=== PATIENT | female | born 1960 | race Caucasian/White ===

== ENCOUNTER 2023-09-08 11:45 | Emergency (ER) | payer MEDICARE, OTHER, SELFPAY ==
[2023-09-08 12:02] VITALS: BP 114/74
--- NOTE | 2023-09-08 14:07 | ED.GENMED ---
History of Present Illness
General
Chief Complaint: DVT/Possible Blood Clot
Source: patient
Exam Limitations: none
Time Seen by Provider: 09/08/23 12:27
Nursing documentation reviewed up to this point in time: agreed with
Travel History
Have you had any contact with someone who has COVID-19?: No
Do you have any symptoms of coronavirus? Fever > 100 degrees, chills, cough, shortness of breath, sore throat, loss of taste or smell, muscle aches, or headache?: No
History of Present Illness
History of Present Illness:
The patient is a pleasant 63-year-old female who reports that she has noticed mild swelling and discomfort behind her left knee. Symptoms have been going on for 2 to 3 days. She denies skin rash, fever, trauma, weakness and numbness. She denies a
history of DVT and PE. She denies shortness of breath and chest pain.
Past History
Past History
ED Past Medical History: Other (psoriasis)
ED Past Surgical History: Other
Social History
Tobacco: Non-smoker
Alcohol: None
Drug: None
Personal: Other
Living: with family
Employment: Other
Family History
Family History: Other
Review of Systems
Review of Systems
Allergies reviewed?: Yes
All Other Systems: ROS reviewed and negative except as documented in HPI and ROS
Constitutional: Reports no symptoms
EENT: Reports no symptoms
Respiratory: Reports no symptoms
Cardiac: Reports no symptoms
ABD/GI: Reports no symptoms
: Reports no symptoms
Musculoskeletal: Reports muscle stiffness
Skin: Reports no symptoms
Neurological: Reports no symptoms
Endocrine: Reports no symptoms
Hematologic/Lymphatic: Reports no symptoms
Psychiatric: Reports no symptoms
Phy Exam
Physical Exam
Physical Exam:
Physical Exam
General: no apparent distress, not acutely ill
Neck: supple. no meningeal signs. normal psoterior pharynx
Heart: s1/s2 regular rate and rhythm,
Lungs: no acute respiratory distress. clear bilaterally
Abdomen: normal bowel sounds. not tender. no CVAT
Neuro: alert and oriented. no focal neurological deficits
Skin: no rash
Psychiatric: well kept. interactive and cooperative
Extremities: no edema. Strong pulses of bilateral feet. Mild left calf tenderness, primarily behind left knee. No skin erythema
Course
Orders/Labs/Results
Orders:
Orders
09/08/23 12:12
US Periph Venous LOWER Ext LT Urgent
Comment:
Reason For Exam: swelling pain
Vital Signs
Initial and Last Documented VS:
Initial Vital Signs
Temp Pulse Resp BP Pulse Ox
98.7 F 84 18 114/74 97
09/08/23 12:02 09/08/23 12:02 09/08/23 12:02 09/08/23 12:02 09/08/23 12:02
Last Documented Vital Signs
Temp Pulse Resp BP Pulse Ox
98.7 F 84 18 114/74 97
09/08/23 12:02 09/08/23 12:02 09/08/23 12:02 09/08/23 12:02 09/08/23 12:02
MDM/Problems Addressed
Differential Diagnosis Includes:
Left leg DVT, Gao's cyst, cellulitis of leg
MDM/Problems Addressed:
Patient presents with acute swelling of left leg
*Radiology
Radiology exam reviewed: radiology read reviewed
*Pulse Oximetry
Patient hypoxic: no
*EKG
Interpreted by ED Provider?: NA
*Stoker Installer Interpretation
Rate: Stoker Installer- N/A
*Critical Care Note
Total Time (30-74mins, 75-104mins- exclusive of procedures): Not Applicable
Data Reviewed
Source: patient
Patient Management
Social determinants of health affecting care: Living situation and Strong social support
Escalation/DeEscalation of care consider admission/obs:
Patient has strong pulses of bilateral feet. There is no sign of cellulitis. Ultrasound shows no sign of DVT.
ED Attending Note
-
Portions of this chart may have been created with voice recognition software.� Occasional wrong word or��sound alike� substitutions may have occurred due to the inherent limitations of voice recognition software.
Discharge Plan
Departure
Patient Disposition: Home (Routine Discharge)
Date of Disposition: 09/08/23
Time of Disposition: 14:31
Patient with high blood pressure during this ER visit?: No
Condition: Good
Covid-19: Not Applicable
Discharge Problem:
Gao's cyst, ruptured
Instructions: Gao's Cyst (DC)
Prescriptions:
No Action
prednisolone sodium phosphate [Pediapred] 5 MG/5 ML solution
6 mg PO WEEKLY
calcium-vitamin D3-vitamin K 1 EACH tablet,chewable
1 ea PO DAILY
Referrals:
Kimmie Salinas MD [Family Provider] -
Interventions
Interventions:
*Risk Screen - Suicide Last Done: 09/08/23 12:02
*General Assessment Last Done: 09/08/23 14:38
*Neglect/Abuse Screening Last Done: 09/08/23 12:02
ED- Fall Risk Assessment Last Done: 09/08/23 14:38
*ED COVID-19 Vaccine History Last Done: 09/08/23 12:02
*Nursing Disposition Last Done: 09/08/23 14:38
ED- Cardiac Assessment Last Done: 09/08/23 12:23
ED- Pulmonary Assessment Last Done: 09/08/23 12:23
ED-Peripheral Vascular Assessment Last Done: 09/08/23 12:23
ED-Skin Assessment Last Done: 09/08/23 12:23
Discharge Date and Time
Discharge Date/Time: 09/08/23 14:43
== END 2023-09-08 14:43 | disposition home or self-care (01) ==
LOC: EMR 11:45
PROVIDERS: EMERGENCY PHYSICIAN Emergency Medicine; FAMILY PHYSICIAN Family Medicine
DX: M66.0 Rupture of popliteal cyst (principal)
CPT/HCPCS: 99284; 93971

== ENCOUNTER → 2023-10-01 13:53 | Outpatient (REF) | payer MEDICARE, OTHER, SELFPAY ==
[2023-10-01 14:36] LABS: % Basophils 0.9 % (0-2); % Eosinophils 1.1 % (0-6); % Lymphocytes 11.7 % (20.5-51.1); % Monocytes 9.4 % (1.7-9.3); % Neutrophils 75.9 % (42.2-75.2); Absolute Basophils 0.1 10^3/uL (0-0.2); Absolute Eosinophils 0.1 10^3/uL (0-0.7); Absolute Immature Granulocytes 0.1 10^3/uL (0-0.05); Absolute Lymphocytes 1.4 10^3/uL (1.2-3.4); Absolute Monocytes 1.2 10^3/uL (0.1-0.6); Absolute Neutrophils 9.3 10^3/uL (1.4-6.5); Hematocrit 36.3 % (37.0-47.0); Hemoglobin 12.3 g/dL (12.0-16.0); Mean Corp Hgb Conc. 33.9 g/dL (33.0-37.0); Mean Corpuscular Hgb 31.4 pg (27.0-31.0); Mean Corpuscular Volume 92.6 fL (81.0-99.0); Mean Platelet Volume 9.2 fL (7.4-10.4); Nucleated Red Blood Cells % 0 %; Platelet Count 479 10^3/uL (130-400); Red Blood Cell Count 3.92 10^6/uL (4.20-5.40); Red Cell Dist. Width 12.7 % (11.5-14.5); White Blood Cell Count 12.3 10^3/uL (4.8-10.8)
[2023-10-01 14:54] LABS: ALT (SGPT) 12 U/L (0-35); AST (SGOT) 17 U/L (14-36); Albumin 3.6 g/dl (3.5-5.0); Alkaline Phosphatase 71 U/L (38-126); Blood Urea Nitrogen 17 mg/dl (7-17); Calcium 9.5 mg/dl (8.4-10.2); Carbon Dioxide 24 mmol/L (22-30); Chloride 101 mmol/L (98-107); Glucose 94 mg/dl (70-99); Potassium 4.6 mmol/L (3.5-5.1); Sodium 136 mmol/L (135-145); Total Bilirubin 0.8 mg/dl (0.2-1.3); Total Protein 6.3 g/dl (6.3-8.2); eGFR > 60.00
[2023-10-01 15:17] LABS: Vitamin D, 25-OH*** 60.8 ng/mL (30-80)
== END ==
LOC: REG 13:53
PROVIDERS: ATTENDING PHYSICIAN Internal Medicine Rheumatology; FAMILY PHYSICIAN Family Medicine
DX: E55.9 Vitamin D deficiency, unspecified (principal); L40.59 Other psoriatic arthropathy; Z51.81 Encounter for therapeutic drug level monitoring; Z79.899 Other long term (current) drug therapy
CPT/HCPCS: 36415; 80053; 82306; 85025; 86140

== ENCOUNTER → 2023-10-11 12:14 | Outpatient (REF) | payer MEDICARE, OTHER, SELFPAY ==
[2023-10-11 14:36] LABS: Calcium 9.7 mg/dl (8.4-10.2)
[2023-10-11 15:10] LABS: TSH 0.81 uIU/ml (0.47-4.68)
[2023-10-12 11:52] LABS: Intact PTH 42.4 pg/ml (13.6-85.8)
[2023-10-16 01:45] LABS: Albumin 3.75 g/dL (3.75-5.01); Alpha 1 Globulin 0.36 g/dL (0.19-0.46); Alpha 2 Globulin 0.78 g/dL (0.48-1.05); SPEP IFE Reflex Not Done; Total Protein-Electrophoresis 6.4 g/dL (6.3-8.2)
== END ==
LOC: REG 12:14
PROVIDERS: ATTENDING PHYSICIAN Internal Medicine Rheumatology; FAMILY PHYSICIAN Family Medicine
DX: L40.59 Other psoriatic arthropathy (principal); M25.561 Pain in right knee; E03.9 Hypothyroidism, unspecified; L40.9 Psoriasis, unspecified; M50.90 Cervical disc disorder, unspecified, unspecified cervical region; M51.37 Other intervertebral disc degeneration, lumbosacral region; M81.0 Age-related osteoporosis without current pathological fracture; Z11.1 Encounter for screening for respiratory tuberculosis; Z79.899 Other long term (current) drug therapy; Z68.26 Body mass index [BMI] 26.0-26.9, adult
CPT/HCPCS: 36415; 83970; 84155; 84165; 84443; 86140

== ENCOUNTER → 2023-12-10 12:10 | Outpatient (REF) | payer MEDICARE, OTHER, SELFPAY | LOC: PAVMRI 12:10 | PROVIDERS: ATTENDING PHYSICIAN Emergency Medicine | DX: R42 Dizziness and giddiness (principal); D84.9 Immunodeficiency, unspecified | CPT/HCPCS: 70553; A9575 ==

== ENCOUNTER → 2023-12-11 09:07 | Outpatient (REF) | payer MEDICARE, OTHER, SELFPAY | LOC: WDC 09:07 | PROVIDERS: ATTENDING PHYSICIAN Emergency Medicine | DX: N63.23 Unspecified lump in the left breast, lower outer quadrant (principal) | CPT/HCPCS: 76642; 77062; 77066 ==

== ENCOUNTER → 2024-01-01 14:13 | Outpatient (REF) | payer MEDICARE, OTHER, SELFPAY ==
[2024-01-01 15:05] LABS: % Basophils 0.7 % (0-2); % Eosinophils 0.3 % (0-6); % Immature Granulocytes 0.6 % (0-0.5); % Lymphocytes 12.3 % (20.5-51.1); % Monocytes 6.9 % (1.7-9.3); % Neutrophils 79.2 % (42.2-75.2); Absolute Basophils 0.1 10^3/uL (0-0.2); Absolute Immature Granulocytes 0.1 10^3/uL (0-0.05); Absolute Lymphocytes 1.1 10^3/uL (1.2-3.4); Absolute Monocytes 0.6 10^3/uL (0.1-0.6); Absolute Neutrophils 7.1 10^3/uL (1.4-6.5); Hematocrit 37.4 % (37.0-47.0); Hemoglobin 12.3 g/dL (12.0-16.0); Mean Corp Hgb Conc. 32.9 g/dL (33.0-37.0); Mean Corpuscular Volume 97.4 fL (81.0-99.0); Mean Platelet Volume 10.4 fL (7.4-10.4); Nucleated Red Blood Cells % 0 %; Platelet Count 228 10^3/uL (130-400); Red Blood Cell Count 3.84 10^6/uL (4.20-5.40); Red Cell Dist. Width 14.5 % (11.5-14.5); White Blood Cell Count 8.9 10^3/uL (4.8-10.8)
[2024-01-01 15:59] LABS: ALT (SGPT) 16 U/L (0-35); AST (SGOT) 23 U/L (14-36); Albumin 4.2 g/dl (3.5-5.0); Alkaline Phosphatase 45 U/L (38-126); Blood Urea Nitrogen 13 mg/dl (7-17); Calcium 9.5 mg/dl (8.4-10.2); Carbon Dioxide 23 mmol/L (22-30); Chloride 105 mmol/L (98-107); Glucose 73 mg/dl (70-99); Potassium 4.4 mmol/L (3.5-5.1); Sodium 135 mmol/L (135-145); Total Bilirubin 0.4 mg/dl (0.2-1.3); Total Protein 6.4 g/dl (6.3-8.2); eGFR > 60.00
== END ==
LOC: REG 14:13
PROVIDERS: ATTENDING PHYSICIAN Internal Medicine Rheumatology; FAMILY PHYSICIAN Family Medicine
DX: L40.59 Other psoriatic arthropathy (principal); L40.9 Psoriasis, unspecified; M25.462 Effusion, left knee; M25.561 Pain in right knee; M25.562 Pain in left knee; M50.90 Cervical disc disorder, unspecified, unspecified cervical region; M51.37 Other intervertebral disc degeneration, lumbosacral region; M81.0 Age-related osteoporosis without current pathological fracture; R79.82 Elevated C-reactive protein (CRP); Z68.26 Body mass index [BMI] 26.0-26.9, adult; Z79.899 Other long term (current) drug therapy
CPT/HCPCS: 36415; 80053; 85025; 86140

== ENCOUNTER → 2024-03-21 11:43 | Outpatient (REF) | payer MEDICARE, OTHER, SELFPAY ==
[2024-03-21 12:32] LABS: Urine Albumin Negative (Neg - Trace); Urine Bilirubin 1+ (Negative); Urine Character Clear (Clear); Urine Color Yellow; Urine Glucose Negative (Negative); Urine Ketone Negative (Negative); Urine Leukocyte Trace (Negative); Urine Nitrite Negative (Negative); Urine Occult Blood Negative (Negative); Urine Urobilinogen 1+ (Neg - 1+)
[2024-03-21 12:41] LABS: % Basophils 1.3 % (0-2); % Eosinophils 2.3 % (0-6); % Immature Granulocytes 0.8 % (0-0.5); % Lymphocytes 25.9 % (20.5-51.1); % Monocytes 9.1 % (1.7-9.3); % Neutrophils 60.6 % (42.2-75.2); Absolute Basophils 0.1 10^3/uL (0-0.2); Absolute Eosinophils 0.2 10^3/uL (0-0.7); Absolute Immature Granulocytes 0.1 10^3/uL (0-0.05); Absolute Monocytes 0.7 10^3/uL (0.1-0.6); Absolute Neutrophils 4.8 10^3/uL (1.4-6.5); Hematocrit 38.3 % (37.0-47.0); Hemoglobin 13.2 g/dL (12.0-16.0); Mean Corp Hgb Conc. 34.5 g/dL (33.0-37.0); Mean Corpuscular Hgb 33.2 pg (27.0-31.0); Mean Corpuscular Volume 96.5 fL (81.0-99.0); Mean Platelet Volume 10.4 fL (7.4-10.4); Nucleated Red Blood Cells % 0 %; Platelet Count 302 10^3/uL (130-400); Red Blood Cell Count 3.97 10^6/uL (4.20-5.40); Red Cell Dist. Width 13.5 % (11.5-14.5); White Blood Cell Count 7.9 10^3/uL (4.8-10.8)
[2024-03-21 13:06] LABS: ALT (SGPT) 18 U/L (0-35); AST (SGOT) 22 U/L (14-36); Albumin 4.3 g/dl (3.5-5.0); Alkaline Phosphatase 43 U/L (38-126); Blood Urea Nitrogen 19 mg/dl (7-17); Calcium 9.5 mg/dl (8.4-10.2); Carbon Dioxide 25 mmol/L (22-30); Chloride 107 mmol/L (98-107); Glucose 91 mg/dl (70-99); HDL Cholesterol 101 mg/dl; LDL Cholesterol, Calculated 88 mg/dl; Potassium 4.5 mmol/L (3.5-5.1); Sodium 139 mmol/L (135-145); Total Bilirubin 0.4 mg/dl (0.2-1.3); Total Cholesterol 212 mg/dl (50-199); Total Protein 6.5 g/dl (6.3-8.2); Triglyceride 116 mg/dl (10-149); Very Low Density Lipoprotein 23 mg/dl (0-30); eGFR > 60.00
[2024-03-21 13:06] LABS: C-Reactive Protein < 5.00 mg/L (0.0-10.00)
[2024-03-21 13:14] LABS: Urine Red Blood Cell 0-2 /HPF (0-2); Urine Squamous Cell 26-30 /LPF (Few)
[2024-03-21 13:23] LABS: Vitamin D, 25-OH*** 61.4 ng/mL (30-80)
[2024-03-21 13:36] LABS: TSH Reflex To Free T4 1.85 uIU/ml (0.47-4.68)
== END ==
LOC: REG 11:43
PROVIDERS: ATTENDING PHYSICIAN Internal Medicine Rheumatology; FAMILY PHYSICIAN Emergency Medicine
DX: L40.59 Other psoriatic arthropathy (principal); L40.9 Psoriasis, unspecified; M25.462 Effusion, left knee; M25.561 Pain in right knee; M25.562 Pain in left knee; M50.90 Cervical disc disorder, unspecified, unspecified cervical region; M51.37 Other intervertebral disc degeneration, lumbosacral region; M81.0 Age-related osteoporosis without current pathological fracture; R79.82 Elevated C-reactive protein (CRP); Z79.899 Other long term (current) drug therapy; Z00.00 Encounter for general adult medical examination without abnormal findings; L40.50 Arthropathic psoriasis, unspecified; F51.01 Primary insomnia; E55.9 Vitamin D deficiency, unspecified; F17.200 Nicotine dependence, unspecified, uncomplicated; E66.3 Overweight; M85.80 Other specified disorders of bone density and structure, unspecified site; E78.5 Hyperlipidemia, unspecified
CPT/HCPCS: 36415; 80053; 80061; 81003; 81015; 82306; 84443; 85025; 86140

== ENCOUNTER → 2024-03-26 14:10 | Outpatient (REF) | payer MEDICARE, OTHER, SELFPAY | LOC: RAD 14:10 | PROVIDERS: ATTENDING PHYSICIAN Emergency Medicine | DX: R42 Dizziness and giddiness (principal); R55 Syncope and collapse | CPT/HCPCS: 93880 ==

== ENCOUNTER → 2024-07-23 12:36 | Outpatient (REF) | payer MEDICARE, OTHER, SELFPAY ==
[2024-07-23 13:09] LABS: % Basophils 1.4 % (0-2); % Eosinophils 1.4 % (0-6); % Immature Granulocytes 0.5 % (0-0.5); % Lymphocytes 20.8 % (20.5-51.1); % Monocytes 9.7 % (1.7-9.3); % Neutrophils 66.2 % (42.2-75.2); Absolute Basophils 0.1 10^3/uL (0-0.2); Absolute Eosinophils 0.1 10^3/uL (0-0.7); Absolute Lymphocytes 1.4 10^3/uL (1.2-3.4); Absolute Monocytes 0.6 10^3/uL (0.1-0.6); Absolute Neutrophils 4.4 10^3/uL (1.4-6.5); Hematocrit 37.5 % (37.0-47.0); Hemoglobin 12.9 g/dL (12.0-16.0); Mean Corp Hgb Conc. 34.4 g/dL (33.0-37.0); Mean Corpuscular Hgb 32.7 pg (27.0-31.0); Mean Corpuscular Volume 95.2 fL (81.0-99.0); Mean Platelet Volume 10.1 fL (7.4-10.4); Nucleated Red Blood Cells % 0 %; Platelet Count 248 10^3/uL (130-400); Red Blood Cell Count 3.94 10^6/uL (4.20-5.40); Red Cell Dist. Width 12.5 % (11.5-14.5); White Blood Cell Count 6.6 10^3/uL (4.8-10.8)
[2024-07-23 13:40] LABS: ALT (SGPT) 22 U/L (0-35); AST (SGOT) 25 U/L (14-36); Albumin 4.1 g/dl (3.5-5.0); Alkaline Phosphatase 38 U/L (38-126); Blood Urea Nitrogen 14 mg/dl (7-17); Calcium 9.6 mg/dl (8.4-10.2); Carbon Dioxide 26 mmol/L (22-30); Chloride 106 mmol/L (98-107); Glucose 96 mg/dl (70-99); Potassium 4.5 mmol/L (3.5-5.1); Sodium 137 mmol/L (135-145); Total Bilirubin 0.3 mg/dl (0.2-1.3); Total Protein 6.2 g/dl (6.3-8.2); eGFR > 60.00
[2024-07-23 13:43] LABS: C-Reactive Protein < 5.00 mg/L (0.0-10.00)
== END ==
LOC: REG 12:36
PROVIDERS: ATTENDING PHYSICIAN Internal Medicine Rheumatology; FAMILY PHYSICIAN Emergency Medicine
DX: L40.59 Other psoriatic arthropathy (principal); L40.9 Psoriasis, unspecified; L97.919 Non-pressure chronic ulcer of unspecified part of right lower leg with unspecified severity; M25.462 Effusion, left knee; M25.561 Pain in right knee; M25.562 Pain in left knee; M81.0 Age-related osteoporosis without current pathological fracture
CPT/HCPCS: 36415; 80053; 85025; 86140

== ENCOUNTER 2024-08-11 11:01 | Outpatient (RCR) | payer MEDICARE, OTHER, SELFPAY | END 2024-08-11 23:59 | disposition home or self-care (01) | LOC: RPT 11:01 | PROVIDERS: ATTENDING PHYSICIAN Psychiatry & Neurology Neurology; FAMILY PHYSICIAN Emergency Medicine | DX: R42 Dizziness and giddiness (principal); Z73.6 Limitation of activities due to disability; R26.89 Other abnormalities of gait and mobility | CPT/HCPCS: 97110; 97112; 97116; 97163; 97530 ==

== ENCOUNTER 2024-08-25 14:07 | Outpatient (RCR) | payer MEDICARE, OTHER, SELFPAY | END 2024-08-26 07:35 | disposition home or self-care (01) | LOC: RPT 14:07 | PROVIDERS: ATTENDING PHYSICIAN Psychiatry & Neurology Neurology; FAMILY PHYSICIAN Emergency Medicine | DX: R42 Dizziness and giddiness (principal); Z73.6 Limitation of activities due to disability; R26.89 Other abnormalities of gait and mobility | CPT/HCPCS: 97110; 97112 ==

== ENCOUNTER → 2024-08-27 11:46 | Outpatient (REF) | payer MEDICARE, OTHER, SELFPAY ==
[2024-08-27 12:33] LABS: % Basophils 0.9 % (0-2); % Eosinophils 1.9 % (0-6); % Immature Granulocytes 0.5 % (0-0.5); % Lymphocytes 20.8 % (20.5-51.1); % Monocytes 9.6 % (1.7-9.3); % Neutrophils 66.3 % (42.2-75.2); Absolute Basophils 0.1 10^3/uL (0-0.2); Absolute Eosinophils 0.1 10^3/uL (0-0.7); Absolute Lymphocytes 1.6 10^3/uL (1.2-3.4); Absolute Monocytes 0.7 10^3/uL (0.1-0.6); Hemoglobin 12.9 g/dL (12.0-16.0); Mean Corp Hgb Conc. 33.9 g/dL (33.0-37.0); Mean Corpuscular Hgb 32.1 pg (27.0-31.0); Mean Corpuscular Volume 94.5 fL (81.0-99.0); Mean Platelet Volume 10.6 fL (7.4-10.4); Nucleated Red Blood Cells % 0 %; Platelet Count 273 10^3/uL (130-400); Red Blood Cell Count 4.02 10^6/uL (4.20-5.40); Red Cell Dist. Width 12.3 % (11.5-14.5); White Blood Cell Count 7.5 10^3/uL (4.8-10.8)
[2024-08-27 13:04] LABS: ALT (SGPT) 19 U/L (0-35); AST (SGOT) 24 U/L (14-36); Albumin 4.1 g/dl (3.5-5.0); Alkaline Phosphatase 57 U/L (38-126); Total Bilirubin 0.5 mg/dl (0.2-1.3); Total Protein 6.4 g/dl (6.3-8.2)
[2024-08-29 09:17] LABS: Quantiferon Mitogen minus NIL 9.94 IU/mL; Quantiferon NIL 0.06 IU/mL; Quantiferon Plus TB1 minus NIL 0.01 IU/mL (<=0.34); Quantiferon TB Gold Plus Negative (Negative)
== END ==
LOC: REG 11:46
PROVIDERS: ATTENDING PHYSICIAN Internal Medicine Rheumatology; FAMILY PHYSICIAN Family Medicine; REFERRING PHYSICIAN Psychiatry & Neurology Neurology
DX: L40.59 Other psoriatic arthropathy (principal); M50.90 Cervical disc disorder, unspecified, unspecified cervical region; M81.0 Age-related osteoporosis without current pathological fracture; Z11.1 Encounter for screening for respiratory tuberculosis; V00-Y99 External causes of morbidity; Z79.899 Other long term (current) drug therapy; M25.512 Pain in left shoulder; M54.59 Other low back pain
CPT/HCPCS: 36415; 72114; 73030; 80076; 85025; 86480

== ENCOUNTER → 2024-11-10 10:39 | Outpatient (REF) | payer MEDICARE, OTHER, SELFPAY ==
[2024-11-10 11:33] LABS: % Basophils 1.2 % (0-2); % Immature Granulocytes 0.4 % (0-0.5); % Lymphocytes 22.9 % (20.5-51.1); % Monocytes 12.2 % (1.7-9.3); % Neutrophils 60.3 % (42.2-75.2); Absolute Basophils 0.1 10^3/uL (0-0.2); Absolute Eosinophils 0.2 10^3/uL (0-0.7); Absolute Lymphocytes 1.1 10^3/uL (1.2-3.4); Absolute Monocytes 0.6 10^3/uL (0.1-0.6); Hematocrit 34.7 % (37.0-47.0); Hemoglobin 11.9 g/dL (12.0-16.0); Mean Corp Hgb Conc. 34.3 g/dL (33.0-37.0); Mean Corpuscular Hgb 32.8 pg (27.0-31.0); Mean Corpuscular Volume 95.6 fL (81.0-99.0); Mean Platelet Volume 10.4 fL (7.4-10.4); Nucleated Red Blood Cells % 0 %; Platelet Count 248 10^3/uL (130-400); Red Blood Cell Count 3.63 10^6/uL (4.20-5.40); Red Cell Dist. Width 13.4 % (11.5-14.5); White Blood Cell Count 4.9 10^3/uL (4.8-10.8)
[2024-11-10 12:04] LABS: ALT (SGPT) 26 U/L (0-35); AST (SGOT) 26 U/L (14-36); Albumin 4.1 g/dl (3.5-5.0); Alkaline Phosphatase 51 U/L (38-126); Blood Urea Nitrogen 12 mg/dl (7-17); Calcium 9.6 mg/dl (8.4-10.2); Carbon Dioxide 27 mmol/L (22-30); Chloride 107 mmol/L (98-107); Glucose 97 mg/dl (70-99); Potassium 4.5 mmol/L (3.5-5.1); Sodium 139 mmol/L (135-145); Total Bilirubin 0.7 mg/dl (0.2-1.3); Total Protein 6.2 g/dl (6.3-8.2); eGFR > 60.00
== END ==
LOC: REG 10:39
PROVIDERS: ATTENDING PHYSICIAN Internal Medicine Rheumatology; FAMILY PHYSICIAN Family Medicine
DX: L40.59 Other psoriatic arthropathy (principal); L97.919 Non-pressure chronic ulcer of unspecified part of right lower leg with unspecified severity; M25.561 Pain in right knee; M25.562 Pain in left knee; Z79.899 Other long term (current) drug therapy
CPT/HCPCS: 36415; 80053; 85025; 86140

== ENCOUNTER → 2024-12-21 17:42 | Outpatient (REF) | payer MEDICARE, OTHER, SELFPAY | LOC: WDC 17:42 | PROVIDERS: ATTENDING PHYSICIAN Emergency Medicine | DX: Z12.31 Encounter for screening mammogram for malignant neoplasm of breast (principal) | CPT/HCPCS: 77063; 77067 ==

== ENCOUNTER → 2025-02-09 12:16 | Outpatient (REF) | payer MEDICARE, OTHER, SELFPAY ==
[2025-02-09 13:00] LABS: Hematocrit 36.1 % (37.0-47.0); Hemoglobin 12.2 g/dL (12.0-16.0); Mean Corp Hgb Conc. 33.8 g/dL (33.0-37.0); Mean Corpuscular Volume 97.3 fL (81.0-99.0); Nucleated Red Blood Cells % 0 %; Platelet Count 235 10^3/uL (130-400); Red Cell Dist. Width 12.5 % (11.5-14.5)
[2025-02-09 13:33] LABS: ALT (SGPT) 19 U/L (0-35); AST (SGOT) 24 U/L (14-36); Albumin 4.2 g/dl (3.5-5.0); Alkaline Phosphatase 53 U/L (38-126); Blood Urea Nitrogen 15 mg/dl (7-17); Calcium 9.4 mg/dl (8.4-10.2); Carbon Dioxide 22 mmol/L (22-30); Chloride 107 mmol/L (98-107); Glucose 93 mg/dl (70-99); Potassium 4.6 mmol/L (3.5-5.1); Sodium 134 mmol/L (135-145); Total Protein 6.3 g/dl (6.3-8.2); eGFR > 60.00
[2025-02-09 13:34] LABS: C-Reactive Protein < 5.00 mg/L (0.0-10.00)
== END ==
LOC: REG 12:16
PROVIDERS: ATTENDING PHYSICIAN Internal Medicine Rheumatology; FAMILY PHYSICIAN Emergency Medicine
DX: L40.59 Other psoriatic arthropathy (principal); L40.9 Psoriasis, unspecified; M25.561 Pain in right knee; M50.90 Cervical disc disorder, unspecified, unspecified cervical region; M81.0 Age-related osteoporosis without current pathological fracture; Z79.899 Other long term (current) drug therapy
CPT/HCPCS: 36415; 80053; 85025; 86140

== ENCOUNTER 2025-03-23 19:02 | Emergency (ER) | payer MEDICARE, OTHER, SELFPAY ==
[2025-03-23 19:05] VITALS: BP 148/64
[2025-03-23 19:11] VITALS: BMI 26.3
[2025-03-23 19:49] LABS: Hematocrit 36.0 % (37.0-47.0); Hemoglobin 12.0 g/dL (12.0-16.0); Mean Corp Hgb Conc. 33.3 g/dL (33.0-37.0); Mean Corpuscular Volume 94.2 fL (81.0-99.0); Platelet Count 209 10^3/uL (130-400); Red Cell Dist. Width 12.3 % (11.5-14.5)
[2025-03-23 19:56] LABS: ALT (SGPT) 21 U/L (0-35); AST (SGOT) 28 U/L (14-36); Albumin 4.0 g/dl (3.5-5.0); Alkaline Phosphatase 45 U/L (38-126); Blood Urea Nitrogen 15 mg/dl (7-17); Calcium 9.9 mg/dl (8.4-10.2); Carbon Dioxide 25 mmol/L (22-30); Chloride 105 mmol/L (98-107); Estimated Creatinine Clearance 83 ml/min; Glucose 86 mg/dl (70-99); Potassium 4.0 mmol/L (3.5-5.1); Sodium 135 mmol/L (135-145); Total Protein 6.2 g/dl (6.3-8.2); eGFR > 60.00
[2025-03-23 20:00] VITALS: BP 131/71
--- NOTE | 2025-03-23 20:00 | ED.GENMED ---
History of Present Illness
General
Chief Complaint: Fainting/Passed Out
Time Seen by Provider: 03/23/25 19:39
History of Present Illness
History of Present Illness:
Patient is a 64-year-old female with a history of psoriatic arthritis, CVA who presents to the emergency department after syncopal event. Notes that she was outside in the park in the heat while helping train a service animal. She does not
remember exactly what happened but woke up on the ground feeling slightly tired. There is no tongue or lip bite. No incontinence. No history of seizures. There is no witnessed seizure-like activity. Denies any chest pain or shortness of breath.
States she had 1 wine cooler earlier in the day.
Past History
Past History
ED Past Medical History: Other (psoriasis)
ED Past Surgical History: Other
Social History
Tobacco: Non-smoker
Alcohol: None
Drug: None
Personal: Other
Living: with family
Employment: Other
Family History
Family History: Other
Phy Exam
Physical Exam
Physical Exam:
GENERAL APPEARANCE: NAD, well developed/ well nourished
EYES lids/conjunctiva normal
EARS/NOSE/THROAT Mucous membranes moist, uvula midline without oral pharyngeal erythema, exudate or swelling
HEAD/NECK normocephalic atraumatic, neck is supple.
RESPIRATORY respiratory effort normal, speaks in full sentences, no accessory muscle use. Lungs clear to auscultation without rhonchi, wheezes, rales
CARDIAC Regular rate and rhythm, no edema.
ABDOMINAL Soft, ND/NT. No pulsatile masses on exam, rebound tenderness, Pelaez sign or pain over Mcburney's point.
MUSCLES/EXTREMITIES No abnormal range of motion, no swelling.
SKIN Warm, pink and dry. No rashes
NEUROLOGICAL Speech is clear and appropriate. Normal level of consciousness. Cranial nerves II through XII intact. Sensation intact throughout. No dysmetria or ataxia. 5/5 strength in all extremities.
PSYCH Normal mood and affect. Judgement/competence is appropriate
Course
Orders/Labs/Results
Orders:
Orders
03/23/25 19:10
Electrocardiogram (*1) Urgent
Reason for Study: Syncope
03/23/25 19:11
EKG- Treatment ONCE
03/23/25 19:25
Alcohol Urgent
CMP [Comprehensive Metabolic Panel] Urgent
Complete Blood Count/With Diff Urgent
03/23/25 19:59
Add On- LAB Urgent
Tests Added?: ethanol level, troponin
0.9% Sodium Chloride 1000 ml [Nss] 1,000 ml IV BOLUS
03/23/25 20:37
CT Head W/o Iv Contrast Urgent
Comment:
Reason For Exam: fall, possible seizure? hx of CVA
03/23/25 20:52
Troponin I Urgent
Abnormal Lab Results
03/23/25
19:25
RBC 3.82 L 10^6/uL
(4.20-5.40)
Hct 36.0 L %
(37.0-47.0)
MCH 31.4 H pg
(27.0-31.0)
Total Protein 6.2 L g/dl
(6.3-8.2)
03/23/25 19:25
03/23/25 19:25
Vital Signs
Initial and Last Documented VS:
Initial Vital Signs
Temp Pulse Resp BP Pulse Ox
98.7 F 75 13 148/64 98
03/23/25 19:05 03/23/25 19:05 03/23/25 19:05 03/23/25 19:05 03/23/25 19:05
Last Documented Vital Signs
Temp Pulse Resp BP Pulse Ox
98.7 F 68 26 164/63 99
03/23/25 19:05 03/23/25 21:00 03/23/25 21:00 03/23/25 21:00 03/23/25 21:00
*Pulse Oximetry
SaO2: 98
Oxygen Mode of Delivery: Room air
Patient hypoxic: no
*Critical Care Note
Total Time (30-74mins, 75-104mins- exclusive of procedures): Not Applicable
ED Attending Note
ED Attending Note
ED Attending Note:
Patient with syncopal episode. She is asymptomatic on arrival. She has no neurologic deficits. EKG is normal sinus rhythm without any ischemic changes. Labs and head CT are reassuring. Unclear etiology of patient's symptoms possibly from being
out in the heat. Does not appear to have any medical necessity for admission at this time. Instructed her to follow-up with her primary care doctor for outpatient management and workup.
-
Portions of this chart may have been created with voice recognition software.� Occasional wrong word or��sound alike� substitutions may have occurred due to the inherent limitations of voice recognition software.
Discharge Plan
Departure
Patient Disposition: Home (Routine Discharge)
Date of Disposition: 03/23/25
Time of Disposition: 21:40
Patient with high blood pressure during this ER visit?: Yes
Discharge Problem:
Syncope
Instructions: Syncope (Fainting) (DC)
Prescriptions:
No Action
prednisolone sodium phosphate [Pediapred] 5 MG/5 ML solution
6 mg PO WEEKLY
calcium-vitamin D3-vitamin K 1 EACH tablet,chewable
1 ea PO DAILY
Referrals:
Zuly Goldman MD [Family Provider, Internal Medicine]
Activity Restrictions/Additional Instructions:
Please follow-up with your primary doctor for recheck in the next few days. Return to the emergency department with new or worsening symptoms.
Interventions
Interventions:
*Risk Screen - Suicide Last Done: 03/23/25 19:12
*General Assessment Last Done: 03/23/25 19:12
*Neglect/Abuse Screening Last Done: 03/23/25 19:12
*ED- Fall Risk Assessment Last Done: 03/23/25 19:12
*ED COVID-19 Vaccine History Last Done: 03/23/25 19:12
*Nursing Disposition Last Done: 03/23/25 21:57
ED- Cardiac Assessment Last Done: 03/23/25 19:12
ED- Neurological Assessment Last Done: 03/23/25 19:12
Discharge Date and Time
Discharge Date/Time: 03/23/25 22:01
Print Language: SPANISH
[2025-03-23] MEDS: NSS 1000 IV (20:03)
[2025-03-23 20:30] LABS: Nucleated Red Blood Cells % 0 %
[2025-03-23 21:00] VITALS: BP 164/63
[2025-03-23 21:29] LABS: Troponin I < 0.012 ng/ml
== END 2025-03-23 22:01 | disposition home or self-care (01) ==
LOC: EMR 19:02
PROVIDERS: Nurse Practitioner; EMERGENCY PHYSICIAN Emergency Medicine; FAMILY PHYSICIAN Emergency Medicine
DX: R55 Syncope and collapse (principal); Z86.73 Personal history of transient ischemic attack (TIA), and cerebral infarction without residual deficits
CPT/HCPCS: 99284; 96360; 70450; 80053; 82077; 84484; 85025; 93005

== ENCOUNTER → 2025-03-31 07:15 | Outpatient (REF) | payer MEDICARE, OTHER, SELFPAY | LOC: HWRCS 07:15 | PROVIDERS: ATTENDING PHYSICIAN Family Medicine | DX: Z87.898 Personal history of other specified conditions (principal) | CPT/HCPCS: 93306 ==

== ENCOUNTER → 2025-04-02 16:15 | Outpatient (REF) | payer MEDICARE, OTHER, SELFPAY | LOC: RAD 16:15 | PROVIDERS: ATTENDING PHYSICIAN Nurse Practitioner Family; FAMILY PHYSICIAN Family Medicine | DX: R07.81 Pleurodynia (principal) | CPT/HCPCS: 71100 ==

== ENCOUNTER → 2025-04-03 08:40 | Outpatient (REF) | payer MEDICARE, OTHER, SELFPAY ==
[2025-04-03 10:35] LABS: Glycohemoglobin (HgbA1c) 5.2 % (4.0-5.6)
[2025-04-03 10:49] LABS: Iron 159 ug/dl (37-170); Very Low Density Lipoprotein 13 mg/dl (0-30)
[2025-04-03 10:58] LABS: Total Iron Binding Capacity 266 ug/dl (265-497)
[2025-04-03 11:02] LABS: Vitamin D, 25-OH*** 54.6 ng/mL (30-80)
[2025-04-03 11:09] LABS: HDL Cholesterol 104 mg/dl; LDL Cholesterol, Calculated 27 mg/dl
[2025-04-03 11:20] LABS: Ferritin 61.0 ng/ml (11.1-264.0)
[2025-04-03 11:52] LABS: Folate > 20.0 ng/ml (2.76-20); Vitamin B12 445 pg/ml (239-931)
== END ==
LOC: RCS 08:40
PROVIDERS: ATTENDING PHYSICIAN Family Medicine
DX: Z87.898 Personal history of other specified conditions (principal); Z86.73 Personal history of transient ischemic attack (TIA), and cerebral infarction without residual deficits; D64.9 Anemia, unspecified; E78.00 Pure hypercholesterolemia, unspecified; L40.50 Arthropathic psoriasis, unspecified; G89.4 Chronic pain syndrome; E55.9 Vitamin D deficiency, unspecified
CPT/HCPCS: 36415; 80061; 82306; 82607; 82728; 82746; 83036; 83540; 83550; 84443; 93225; 93226

== ENCOUNTER 2025-04-13 17:25 | Emergency (ER) | payer MEDICARE, OTHER, SELFPAY ==
[2025-04-13 17:34] VITALS: BP 115/74
--- NOTE | 2025-04-13 19:04 | ED.GENMED ---
History of Present Illness
General
Chief Complaint: Skin Surface Trauma
Source: patient
Time Seen by Provider: 04/13/25 18:31
History of Present Illness
History of Present Illness:
64-year-old female presents to the emergency room complaining of a laceration to her left mukherjee. Patient struck her mukherjee on her car door. Patient cannot stop the bleeding. No other complaints. Last tetanus shot was a couple years ago.
Past History
Past History
ED Past Medical History: Other (psoriasis)
ED Past Surgical History: Other
Social History
Tobacco: Non-smoker
Alcohol: None
Drug: None
Personal: Other
Living: with family
Employment: Other
Family History
Family History: Other
Phy Exam
Physical Exam
Physical Exam:
General: Awake, Alert, Oriented X3. No acute distress.
Vitals: unremarkable
Head: Atraumatic
Eyes: Pupils equal, EOMI
Throat: Airway intact, no exudates
Neck: Trachea midline
Neuro: Nonfocal
Skin: Warm, dry, no rash
Extremities: pulses equal b/l, no edema. Flap laceration noted left anterior mukherjee. Follow-up laceration is about 2 cm horizontally and 2 cm on the lower diagonal axis. Total laceration length is approximately 4 cm. There is a actively bleeding
varicose vein at the medial edge of the laceration bed.
Course
Vital Signs
Initial and Last Documented VS:
Initial Vital Signs
Temp Pulse Resp BP Pulse Ox
98.7 F 83 16 115/74 98
04/13/25 17:34 04/13/25 17:34 04/13/25 17:34 04/13/25 17:34 04/13/25 17:34
Last Documented Vital Signs
Temp Pulse Resp BP Pulse Ox
98.7 F 83 16 115/74 98
04/13/25 17:34 04/13/25 17:34 04/13/25 17:34 04/13/25 17:34 04/13/25 19:09
Procedures
Laceration Closure
Left Leg:
Status of Wound: clean
Size of Wound in cm: 4
Description of Wound Edges: ragged and flap-well vascularized
Preparation: cleaned with saline
Anesthesia: 1% Lidocaine with epi
Revision/Debridement: minor revision
Wound exploration: explored to base- no FB
Type of Closure: single layer closure
Skin Closure Material: 4-0 nylon and 5-0 vicryl
Number of sutures: 8
Additional information:
7 send. Interrupted nylon sutures and 1 [id number] Vicryl Rapide suture
MDM/Problems Addressed
Differential Diagnosis Includes:
Laceration, retained foreign body
MDM/Problems Addressed:
Laceration is a flap-like laceration but the flap itself is fairly thick and it is a large area that is exposed. First I controlled the varicose vein which was bleeding with a [id number] stitch using 5-0 Vicryl Rapide. Next I approximated the
flap using 4-0 nylon. The coverage of the wound bed was actually quite good. I explained to the patient that the skin flap may or may not take. She may end up with a large scabbed wound which will take some time to heal but we have done
everything we could to maximize the chance for normal healing. Will give her the contact information for the wound care center to follow-up with.
*Pulse Oximetry
SaO2: 98
Oxygen Mode of Delivery: Room air
Patient hypoxic: no
*Critical Care Note
Total Time (30-74mins, 75-104mins- exclusive of procedures): Not Applicable
ED Attending Note
-
Portions of this chart may have been created with voice recognition software.� Occasional wrong word or��sound alike� substitutions may have occurred due to the inherent limitations of voice recognition software.
Discharge Plan
Departure
Patient Disposition: Home (Routine Discharge)
Date of Disposition: 04/13/25
Time of Disposition: 20:00
Patient with high blood pressure during this ER visit?: No
Condition: Good
Discharge Problem:
Laceration of left leg
Instructions: Laceration Repair With Stitches (DC)
Prescriptions:
No Action
prednisolone sodium phosphate [Pediapred] 5 MG/5 ML solution
6 mg PO WEEKLY
calcium-vitamin D3-vitamin K 1 EACH tablet,chewable
1 ea PO DAILY
Referrals:
[facility] [Outside]
Activity Restrictions/Additional Instructions:
stitches can be removed in 7 to 10 days
Interventions
Interventions:
*Risk Screen - Suicide Last Done: 04/13/25 17:34
*General Assessment Last Done: 04/13/25 20:04
*Neglect/Abuse Screening Last Done: 04/13/25 17:34
*ED- Fall Risk Assessment Last Done: 04/13/25 20:04
*ED COVID-19 Vaccine History Last Done: 04/13/25 20:04
*Nursing Disposition Last Done: 04/13/25 20:04
ED-Skin Assessment Last Done: 04/13/25 20:04
Discharge Date and Time
Discharge Date/Time: 04/13/25 20:11
Print Language: SLOVAK
== END 2025-04-13 20:11 | disposition home or self-care (01) ==
LOC: EMR 17:25
PROVIDERS: EMERGENCY PHYSICIAN Emergency Medicine; FAMILY PHYSICIAN Family Medicine
DX: S81.812A Laceration without foreign body, left lower leg, initial encounter (principal); I83.892 Varicose veins of left lower extremity with other complications; W22.8XXA Striking against or struck by other objects, initial encounter
CPT/HCPCS: 12002; 99282

== ENCOUNTER → 2025-04-15 09:41 | Outpatient (REF) | payer MEDICARE, OTHER, SELFPAY ==
[2025-04-17 17:17] LABS: FIT-Fecal Occult Blood Interp Negative
== END ==
LOC: REG 09:41
PROVIDERS: ATTENDING PHYSICIAN Family Medicine
DX: D64.9 Anemia, unspecified (principal)
CPT/HCPCS: 83520

== ENCOUNTER → 2025-04-23 12:50 | Outpatient (REF) | payer MEDICARE, OTHER, SELFPAY | LOC: RAD 12:50 | PROVIDERS: ATTENDING PHYSICIAN Nurse Practitioner; FAMILY PHYSICIAN Family Medicine | DX: R42 Dizziness and giddiness (principal); I63.81 Other cerebral infarction due to occlusion or stenosis of small artery | CPT/HCPCS: 93880 ==

== ENCOUNTER → 2025-04-27 11:09 | Outpatient (REF) | payer MEDICARE, OTHER, SELFPAY | LOC: HWRAD 11:09 | PROVIDERS: ATTENDING PHYSICIAN Family Medicine | DX: Z87.891 Personal history of nicotine dependence (principal) | CPT/HCPCS: 71271 ==

== ENCOUNTER → 2025-05-18 10:01 | Outpatient (REF) | payer MEDICARE, OTHER, SELFPAY ==
[2025-05-18 11:30] LABS: Hematocrit 36.8 % (37.0-47.0); Hemoglobin 12.5 g/dL (12.0-16.0); Mean Corp Hgb Conc. 34.0 g/dL (33.0-37.0); Mean Corpuscular Volume 96.8 fL (81.0-99.0); Nucleated Red Blood Cells % 0 %; Platelet Count 224 10^3/uL (130-400); Red Cell Dist. Width 13.0 % (11.5-14.5)
[2025-05-18 11:58] LABS: ALT (SGPT) 18 U/L (0-35); AST (SGOT) 27 U/L (14-36); Albumin 4.4 g/dl (3.5-5.0); Alkaline Phosphatase 48 U/L (38-126); Blood Urea Nitrogen 8 mg/dl (7-17); Calcium 8.7 mg/dl (8.4-10.2); Carbon Dioxide 24 mmol/L (22-30); Chloride 108 mmol/L (98-107); Glucose 77 mg/dl (70-99); Potassium 4.6 mmol/L (3.5-5.1); Sodium 137 mmol/L (135-145); Total Protein 6.5 g/dl (6.3-8.2); eGFR > 60.00
[2025-05-18 12:02] LABS: C-Reactive Protein < 5.00 mg/L (0.0-10.00)
[2025-05-18 12:18] LABS: Vitamin D, 25-OH*** 55.6 ng/mL (30-80)
== END ==
LOC: REG 10:01
PROVIDERS: ATTENDING PHYSICIAN Internal Medicine Rheumatology; FAMILY PHYSICIAN Family Medicine
DX: E55.9 Vitamin D deficiency, unspecified (principal); L40.59 Other psoriatic arthropathy; Z79.899 Other long term (current) drug therapy
CPT/HCPCS: 36415; 80053; 82306; 85025; 86140

== ENCOUNTER 2025-05-21 15:33 | Inpatient (IN) | payer MEDICARE, OTHER, SELFPAY ==
[2025-05-21] VITALS (13 sets, daily range): BP systolic 109–154; BP diastolic 50–123; BMI 25.3; BMI 25.0
--- NOTE | 2025-05-21 12:32 | ED.GENMED ---
History of Present Illness
<Mike Lopez PA-C - Last Filed: 05/21/25 16:50>
General
Chief Complaint: Fall
Source: patient
Time Seen by Provider: 05/21/25 12:18
History of Present Illness
History of Present Illness:
64-year-old female with past medical history of CVA who presents to the emergency department from home for evaluation after an accidental fall where her dog excellently tripped her causing her to fall onto a grassy surface but now having severe
right sided hip/pelvic pain and an inability to ambulate. Patient states she crawled on the grass and her significant other was able to get her into the car and drove the patient here. Patient is noting moderate to severe pain, did not take
anything for pain prior to arrival. Denies any previous history of injury or surgery but does state that she has chronic arthritis and pain from this. No other concerns at this time
Past History
<Mike Lopez PA-C - Last Filed: 05/21/25 16:50>
Past History
ED Past Medical History: CVA and Other (psoriasis)
ED Past Surgical History: Other
Social History
Tobacco: Non-smoker
Alcohol: None
Drug: None
Personal: Other
Living: with family
Employment: Other
Family History
Family History: Other
Review of Systems
<Mike Lopez PA-C - Last Filed: 05/21/25 16:50>
Review of Systems
All Other Systems: ROS reviewed and negative except as documented in HPI and ROS
Phy Exam
<Mike Lopez PA-C - Last Filed: 05/21/25 16:50>
Physical Exam
Physical Exam:
GENERAL: Alert , appears uncomfortable, grimacing
EYE: conjunctiva clear
Head: Normocephalic atraumatic
NECK: Supple,
ENT: mmm.
LUNGS: no acute respiratory distress
NEUROLOGICAL: Alert and oriented
SKIN: Warm and dry, skin intact.
MUSCULOSKELETAL: Right lower extremity: Patient holding her leg flexed at the hip, not allowing for any range of motion stating it is too painful for her to straighten her right leg. There is no tenderness overlying the knee, ankle or foot.
Patient's compartments are soft. Neurovascularly intact. Easily palpable pulses and intact and equal sensation throughout. Remainder of extremities are within normal limits
PSYCH: Normal and appropriate interaction.
Scores
<Mike Lopez PA-C - Last Filed: 05/21/25 16:50>
Heart Failure Risk
Heart Failure Risk Score: Not Applicable
Heart Score for Chest Pain Patients
STEMI patient?: Not applicable
Withdrawal Assessment of Alcohol
Withdrawal Assessment Completed?: Not applicable
Course
<Mike Lopez PA-C - Last Filed: 05/21/25 16:50>
Orders/Labs/Results
Orders:
Orders
05/21/25 12:28
Ibuprofen [Motrin] 600 mg PO NOW STA
Oxycodone/Acetaminophen [Percocet 5/325] 1 tablet PO NOW STA
CR Pelvis - 1 Or 2 Views Urgent
Reason For Exam: fall, pain, unable to ambulate
Femur, Right 2 View [CR Femur - Right Min 2 Vw] Urgent
Comment:
Reason For Exam: fall, pain
05/21/25 14:23
HYDROmorphone [Dilaudid] 1 mg IV NOW STA
05/21/25 14:27
CT Pelvis W/o Iv Contrast Urgent
Comment:
Reason For Exam: operative planning, femoral neck fx
05/21/25 14:53
EKG [Electrocardiogram (*1)] Routine
Reason for Study: PreOp
05/21/25 14:58
Admit/Transfer Patient As Directed
Co-Sign Provider:
Level of Care: Inpatient admission
Assign to:: Medical/Surgical
Physician / Group: Osito Burnett
Diagnosis: Right Hip Fracture
Reason for Hospitalization: OR for hip fracture repair
Expected length of stay greater than two midnights?: Yes
ELOS- Estimated Length of Stay in days: 3
I certify the patient meets the requirements for IP care: Yes
PRN Pain Medication Management As Directed
May give lesser potent ordered pain med per pt: Yes
preference::
Protocol:: Medication orders for pain may be administered in a
manner that supports deferring to patient preference
when the pt is:
- Requesting an ordered lesser potent pain medication.
Least to most potent pain medications are defined
as: acetaminophen < NSAID < tramadol < opioids
(morphine, oxycodone, hydromorphone).
- Requesting a lesser dose of the same medication IF
ORDERED.
- Requesting a less intrusive route of administration
if both routes are prescribed by the provider (PO <
IV).
05/21/25 14:59
Basic Metabolic Panel Urgent
Complete Blood Count/With Diff Urgent
PTT Urgent
Prothrombin Time Urgent
05/21/25 15:00
Code Status As Directed
Resuscitation Status: Full Code
Abnormal Lab Results
05/21/25
14:59
RBC 3.68 L 10^6/uL
(4.20-5.40)
Hct 35.6 L %
(37.0-47.0)
MCH 33.4 H pg
(27.0-31.0)
Abs Immat Gran (auto) 0.1 H 10^3/uL
(0-0.05)
Absolute Neuts (auto) 8.5 H 10^3/uL
(1.4-6.5)
Neutrophils % 79.5 H %
(42.2-75.2)
Lymphocytes % 13.4 L %
(20.5-51.1)
Chloride 109 H mmol/L
(98-107)
05/21/25 14:59
05/21/25 14:59
Vital Signs
Initial and Last Documented VS:
Initial Vital Signs
Temp Pulse Resp BP Pulse Ox
98.5 F 69 20 152/68 98
05/21/25 12:04 05/21/25 12:04 05/21/25 12:04 05/21/25 12:04 05/21/25 12:04
Last Documented Vital Signs
Temp Pulse Resp BP Pulse Ox
98.5 F 69 20 154/123 96
05/21/25 12:04 05/21/25 12:04 05/21/25 12:04 05/21/25 13:01 05/21/25 13:45
<Hai Lord, DO - Last Filed: 05/21/25 14:25>
Orders/Labs/Results
Orders:
Orders
05/21/25 12:28
Ibuprofen [Motrin] 600 mg PO NOW STA
Oxycodone/Acetaminophen [Percocet 5/325] 1 tablet PO NOW STA
CR Pelvis - 1 Or 2 Views Urgent
Reason For Exam: fall, pain, unable to ambulate
Femur, Right 2 View [CR Femur - Right Min 2 Vw] Urgent
Comment:
Reason For Exam: fall, pain
05/21/25 14:23
HYDROmorphone [Dilaudid] 1 mg IV NOW STA
05/21/25 14:27
CT Pelvis W/o Iv Contrast Urgent
Comment:
Reason For Exam: operative planning, femoral neck fx
05/21/25 14:53
EKG [Electrocardiogram (*1)] Routine
Reason for Study: PreOp
05/21/25 14:58
Admit/Transfer Patient As Directed
Co-Sign Provider:
Level of Care: Inpatient admission
Assign to:: Medical/Surgical
Physician / Group: Osito Burntet
Diagnosis: Right Hip Fracture
Reason for Hospitalization: OR for hip fracture repair
Expected length of stay greater than two midnights?: Yes
ELOS- Estimated Length of Stay in days: 3
I certify the patient meets the requirements for IP care: Yes
PRN Pain Medication Management As Directed
May give lesser potent ordered pain med per pt: Yes
preference::
Protocol:: Medication orders for pain may be administered in a
manner that supports deferring to patient preference
when the pt is:
- Requesting an ordered lesser potent pain medication.
Least to most potent pain medications are defined
as: acetaminophen < NSAID < tramadol < opioids
(morphine, oxycodone, hydromorphone).
- Requesting a lesser dose of the same medication IF
ORDERED.
- Requesting a less intrusive route of administration
if both routes are prescribed by the provider (PO <
IV).
05/21/25 14:59
Basic Metabolic Panel Urgent
Complete Blood Count/With Diff Urgent
PTT Urgent
Prothrombin Time Urgent
05/21/25 15:00
Code Status As Directed
Resuscitation Status: Full Code
Abnormal Lab Results
05/21/25
14:59
RBC 3.68 L 10^6/uL
(4.20-5.40)
Hct 35.6 L %
(37.0-47.0)
MCH 33.4 H pg
(27.0-31.0)
Abs Immat Gran (auto) 0.1 H 10^3/uL
(0-0.05)
Absolute Neuts (auto) 8.5 H 10^3/uL
(1.4-6.5)
Neutrophils % 79.5 H %
(42.2-75.2)
Lymphocytes % 13.4 L %
(20.5-51.1)
Chloride 109 H mmol/L
(98-107)
05/21/25 14:59
05/21/25 14:59
Vital Signs
Initial and Last Documented VS:
Initial Vital Signs
Temp Pulse Resp BP Pulse Ox
98.5 F 69 20 152/68 98
05/21/25 12:04 05/21/25 12:04 05/21/25 12:04 05/21/25 12:04 05/21/25 12:04
Last Documented Vital Signs
Temp Pulse Resp BP Pulse Ox
98.5 F 69 20 154/123 96
05/21/25 12:04 05/21/25 12:04 05/21/25 12:04 05/21/25 13:01 05/21/25 13:45
<Mike Lopez PA-C - Last Filed: 05/21/25 16:50>
MDM/Problems Addressed
Differential Diagnosis Includes:
Fracture
Dislocation
Contusion
Sprain
MDM/Problems Addressed:
64-year-old female presenting to the emergency department for evaluation following an accidental fall resulting in right hip/pelvic pain. Patient unable to ambulate since the fall. No previous history of injury or surgery. Will treat pain with
Percocet and Motrin, x-rays ordered. Disposition pending
<Mike Lopez PA-C - Last Filed: 05/21/25 16:50>
*Radiology
Radiology exam reviewed: preliminary read by ED provider (Femoral neck/subcapital fracture)
*Pulse Oximetry
SaO2: 98
Oxygen Mode of Delivery: Room air
Patient hypoxic: no
*Critical Care Note
Total Time (30-74mins, 75-104mins- exclusive of procedures): Not Applicable
<Mike Lopez PA-C - Last Filed: 05/21/25 16:50>
Patient Management
Discussion with other providers: Hospitalist and [employer]
Escalation/DeEscalation of care consider admission/obs:
Patient's x-ray shows a fracture of the femoral neck/subcapital fracture. Reviewed the x-ray imaging with orthopedics who is requesting a CT performed for operative planning. They plan to take the patient to the OR today as the patient has been
n.p.o. Preoperative labs ordered. Additional Dilaudid ordered for pain. Hospitalist team was notified and accepts for continued evaluation and treatment.
ED Attending Note
<Mike Lopez PA-C - Last Filed: 05/21/25 16:50>
-
Portions of this chart may have been created with voice recognition software.� Occasional wrong word or��sound alike� substitutions may have occurred due to the inherent limitations of voice recognition software.
<Hai Lord DO - Last Filed: 05/21/25 14:25>
ED Attending Note
Patient seen and examined by attending physician: Yes
I performed the substantive portion of visit, reviewed & personally made and approve the management plan that is documented in note by myself or GAETANO.: Yes
ED Attending Note:
I evaluated the patient bedside. The patient hold the right lower extremity in external rotation at the hip. She states that she feels fairly comfortable when she is just resting. She has a right femoral neck fracture. Planning admission to the
hospital.
Discharge Plan
Departure
Patient Disposition: Admit
Date of Disposition: 05/21/25
Time of Disposition: 14:24
Presentation/result/management discussed w/ accepting MD/DO: Hospitalist
Discharge Problem:
Closed fracture of neck of right femur
Interventions
Interventions:
*Risk Screen - Suicide Last Done: 05/21/25 12:04
*General Assessment Last Done: 05/21/25 12:04
*Neglect/Abuse Screening Last Done: 05/21/25 12:41
*ED- Fall Risk Assessment Last Done: 05/21/25 12:41
*ED COVID-19 Vaccine History Last Done: 05/21/25 12:04
*ED Influenza Vaccine History Last Done: 05/21/25 12:04
*Nursing Disposition Last Done: 05/21/25 16:25
ED-Musculoskeletal Assessment Last Done: 05/21/25 12:45
ED- Neurological Assessment Last Done: 05/21/25 12:45
ED-Skin Assessment Last Done: 05/21/25 12:45
Discharge Date and Time
Discharge Date/Time: 05/21/25 16:27
[2025-05-21] MEDS: PERCOCET 5/325 1 TABLET PO (12:38)
[2025-05-21] MEDS: MOTRIN 600 MG PO (12:38)
[2025-05-21] MEDS: DILAUDID 1 MG IV (15:01)
--- NOTE | 2025-05-21 15:07 | HPS.HSE ---
Addendum entered and electronically signed by Osito Burnett MD 05/21/25 15:40:
see update note for addendum
Original Note:
Family Physician
-
Family Physician: Kimmie Salinas
Chief Complaint
-
Fall with Right Hip Pain
History of Present Illness
Patient is a 64 y/o female past medical history of CVA, Hyperlipidemia, Psoriatic Arthritis, and Anxiety / Depression who presents with right hip pain following a fall. Patient reports she took her dog out on a leash this morning. He pulled
suddenly to the right pulling her down causing her to land on her right hip. She immediately developed pain in her right hip and she was unable to walk. She denies hitting her head during the event.
Medical History
Past Medical History
Past Medical History: Reports Other
Additional Past Medical History:
Right Cerebellar Hemisphere Stroke
Hyperlipidemia
Psoriatic Arthritis
Anxiety / Depression
Chronic Pain Syndrome
Past Surgical History: Reports Other
Additional Past Surgical History:
Left Parotid Gland Removal
Social History
Tobacco: Smoker
Family History
Family History: Not pertinent
Allergies / Home Medications
Allergies reflects when Allergies were last updated in [employer].
Home Medications with original date entered in [employer]
Allergy/Medication List:
Allergies
Allergy/AdvReac Type Severity Reaction Status Date / Time
sulfamethoxazole (From AdvReac malaise Verified 05/21/25 12:48
Bactrim)
trimethoprim (From Bactrim) AdvReac malaise Verified 05/21/25 12:48
Home Medications
aspirin 81 mg tablet 81 mg PO DAILY 05/21/25
atorvastatin 40 mg tablet 40 mg PO DAILY 05/21/25
bupropion HCl 150 mg 24 hr tablet, extended release 150 mg PO BID 05/21/25
calcium carbonate 500 mg PO DAILY 05/21/25
cholecalciferol (vitamin D3) 50 mcg (2,000 unit) capsule (Vitamin D3) 50 mcg PO DAILY 05/21/25
escitalopram oxalate 20 mg tablet 20 mg PO DAILY 05/21/25
folic acid 1 mg tablet 1 mg PO DAILY 05/21/25
gabapentin 100 mg capsule 300 mg PO HS 05/21/25
methotrexate sodium 2.5 mg tablet 25 mg PO WEEKLY 05/21/25
Review of Systems
-
A 12 point ROS was completed and negative except as noted: Yes
Constitutional: Denies Fever
Respiratory: Denies Cough or Trouble Breathing
Cardiac: Denies Chest Pain or Palpitations
Abdomen/GI: Denies Abdominal Pain
Musculoskeletal: Reports See HPI
Physical Exam
Vital Signs
Vital Signs
Temp Pulse Resp BP Pulse Ox
98.5 F 69 20 136/80 97
05/21/25 12:04 05/21/25 12:04 05/21/25 12:04 05/21/25 12:45 05/21/25 12:45
Physical Exam
General: Comfortable and Conversant
HEENT: Anicteric and Moist mucous membranes
Respiratory: Clear and Non Labored Respirations
Cardiac: S1/S2 and Regular Rhythm
GI: Soft and Non Tender
Musculoskeletal: No Clubbing, No Cyanosis and Other (Hold right lower extremity in flexed position)
Skin: Warm and Dry
Neuro: Awake, Alert and Oriented
Psych: Anxious (Slightly tearful)
Data Reviewed
-
Old Records: Reviewed
Impression/Plan
-
Right Hip Fracture
-Consult Orthopedic Surgery
-Check CT scan per ortho
-Await blood work and EKG
-Keep NPO for possible OR this afternoon
-Pain control with Tylenol, Oxycodone and Dilaudid
Hx Right Cerebellar Hemisphere Stroke - 2023
-Resume aspirin post-op
Hyperlipidemia
-Continue atorvastatin
Anxiety / Depression
-Continue bupropion and escitalopram
Chronic Pain Syndrome
-Continue gabapentin
Psoriatic Arthritis
-Patient maintained on methotrexate and Simponi as outpatient
DVT proph: SCDs
Code Status: Full Code
[2025-05-21 15:17] LABS: Hematocrit 35.6 % (37.0-47.0); Hemoglobin 12.3 g/dL (12.0-16.0); Mean Corp Hgb Conc. 34.6 g/dL (33.0-37.0); Mean Corpuscular Volume 96.7 fL (81.0-99.0); Nucleated Red Blood Cells % 0 %; Platelet Count 220 10^3/uL (130-400); Red Cell Dist. Width 12.8 % (11.5-14.5)
[2025-05-21 15:24] LABS: INR 0.99; PT 13.4 Sec (11.4-14.6)
[2025-05-21 15:25] LABS: APTT 29.8 Sec (23.4-35.0)
--- NOTE | 2025-05-21 15:30 | W.PN.UPDATE ---
Update Note
Progress Note Update
I saw and examined the patient.
The JACKY Calderon's note was reviewed and I agree with the note.
Comment: 64 y/o F, hx of CVA HLD, psoriatic arthritis presents to ER with mechanical fall while walking her dog. Dog suddenly pulled on the leash causing her to land onto R hip. She developed R hip pain and was unable to walk.
X:ray revealed impacted subcapital fracture of the right hip and CT is pending.
Physical Exam
General: Comfortable and Conversant
HEENT: Anicteric and Moist mucous membranes
Respiratory: Clear and Non Labored Respirations
Cardiac: S1/S2 and Regular Rhythm
GI: Soft and Non Tender
Musculoskeletal: No Clubbing, No Cyanosis and Other (Hold right lower extremity in flexed position)
Skin: Warm and Dry
Neuro: Awake, Alert and Oriented
Psych: Anxious (Slightly tearful)
Assessment:
Right Hip Fracture
- Xray: impacted subcapital fracture of the right hip
- CT pending
- pain control
- EKG NSR, RCRI score is 1 (CVA), 1.1% risk of MACE. no additional testing warranted. low-intermediate risk for intermediate risk procedure.
- Orthopedics consult, possible operative intervention today.
hx of Right cerebellar CVA 2023
- ASA post-op
Hyperlipidemia
- continue atorvastatin
Anxiety / Depression
- continue bupropion and escitalopram
Chronic Pain Syndrome
- continue gabapentin
Psoriatic Arthritis
- maintained on methotrexate and Simponi as outpatient
DVT ppx: SCDs
Code: Full
[2025-05-21 15:36] LABS: Blood Urea Nitrogen 13 mg/dl (7-17); Calcium 9.6 mg/dl (8.4-10.2); Carbon Dioxide 25 mmol/L (22-30); Chloride 109 mmol/L (98-107); Estimated Creatinine Clearance 71 ml/min; Glucose 80 mg/dl (70-99); Potassium 4.3 mmol/L (3.5-5.1); Sodium 138 mmol/L (135-145); eGFR > 60.00
--- NOTE | 2025-05-21 17:07 | W.PN.UPDATE ---
Update Note
Progress Note Update
Full H&P to follow-up
64-year-old female with a ground level mechanical fall and impact of her right hip with immediate pain and difficulty bearing weight. Reports community ambulator occasionally with walker at baseline due to chronic balance issues. Denies other
injury sustained.
X-ray and CT of the right hip shows a minimally displaced impacted right femoral neck fracture but no significant osteoarthrosis
Patient consented for right hip closed reduction and percutaneous cannulated screw fixation with Dr. Krissy Valdivia. Consent on file. Preoperative antibiotics orders placed. Will update postoperative orders. Skin laterality signed
[2025-05-21] MEDS: DILAUDID 0.5 MG IV ×2 (18:16→22:08)
--- NOTE | 2025-05-21 19:26 | CON.ORTHO ---
Consultation
-
Date/Time Consultation Requested: 05/21/2025 1442
Date/Time Consultation Performed: 05/21/2025 1615
Requesting Provider: KAJAL Suarez
Performing Provider: Dr. Krissy Valdivia, KAJAL Ríos
Reason for Consultation: R hip fracture
Consultation - Orthopedics
History
65-year-old female presenting to [place] emergency room after mechanical fall see impact of her right hip. She reports inability bear weight was brought to [place] emergency room and on imaging diagnosed with a minimally displaced femoral
neck fracture. She denies any antecedent or prodromal symptoms about her hip. She is community ambulator at baseline with occasional walker due to to some chronic balance issues. Denies any other injury sustained
Allergies / Home Medications
Past Medical History
Past Medical History: Reports Other
Additional Past Medical History:
Right Cerebellar Hemisphere Stroke
Hyperlipidemia
Psoriatic Arthritis
Anxiety / Depression
Chronic Pain Syndrome
Past Surgical History: Reports Other
Additional Past Surgical History:
Left Parotid Gland Removal
Social History
Tobacco: Smoker
Family History
Family History: Not pertinent
Allergy/AdvReac Type Severity Reaction Status Date / Time
sulfamethoxazole (From Allergy malaise Verified 05/21/25 18:37
Bactrim)
trimethoprim (From Bactrim) Allergy malaise Verified 05/21/25 18:37
�Medication �Instructions �Recorded
aspirin 81 mg tablet 81 mg PO DAILY 05/21/25
atorvastatin 40 mg tablet 40 mg PO DAILY 05/21/25
bupropion HCl 150 mg 24 hr tablet, 150 mg PO BID 05/21/25
extended release
calcium carbonate 500 mg PO DAILY 05/21/25
cholecalciferol (vitamin D3) 50 50 mcg PO DAILY 05/21/25
mcg (2,000 unit) capsule (Vitamin
D3)
escitalopram oxalate 20 mg tablet 20 mg PO DAILY 05/21/25
folic acid 1 mg tablet 1 mg PO DAILY 05/21/25
gabapentin 100 mg capsule 300 mg PO HS 05/21/25
methotrexate sodium 2.5 mg tablet 25 mg PO WEEKLY 05/21/25
Vital Signs / Lab Results
Temp Pulse Resp BP Pulse Ox
97.4 F 79 15 142/71 99
05/21/25 18:27 05/21/25 18:45 05/21/25 18:45 05/21/25 18:45 05/21/25 18:45
PHYSICAL EXAM: Focused examination of the right lower extremity shows skin is intact with no erythema edema or ecchymosis. Discomfort localized about the hip with logroll testing however not aggressively challenged. Nontender about the knee ankle
distal lower limb and neuro vastly intact L3-S1.
IMAGING: X-rays taken of the right hip and pelvis show a slightly impacted fracture of the femoral neck. No significant hip osteoarthrosis
CT scan performed of the pelvis shows an impacted subcapital right hip fracture with minimal arthrosis of the right femoral acetabular joint
05/21/25 14:59
05/21/25 14:59
Assessment / Plan
65F right impacted minimally displaced femoral neck fracture DOI 05/21/2025
Discussed with the patient as well as relative family members the significance of hip fractures there is an increased morbidity and mortality associated with these and they are significant injuries; reviewed that a portion of patient's return
towards ambulatory baseline status, another subset of patients are decreased when activity level, and other subset of patients pass away relative to comorbid conditions and decreased ambulatory status. Discussed it is recommended for majority of
patients to undergo operative intervention for optimal outcomes so that they may have an increased ambulatory status.
Patient is a community ambulator at baseline with occasional assist devices. Recommended for operative invention.
Patient consented for right hip closed reduction and percutaneous cannulated screw fixation with Dr. Krissy Valdivia. Consent on file. Preoperative antibiotics orders placed. Skin laterality signed.
It was further discussed with the patient that the injury sustained is considered a fragility fracture which occurs in the setting of osteoporosis. Discussed with the patient the significance of this as there is an increased risk of further
fragility fractures in the future. Recommend when discharged and in the nearby future for a follow-up with her primary care provider and discussion of management of osteoporosis and mitigating fall risk is much as possible in the future.
--- NOTE | 2025-05-21 19:45 | PTCARENOTE ---
pt arrived to [facility] from PACU post op R hip ORIF. pt is AAOx3, no needs at this time. Oriented to new room and plan of care explained. R hip drsg CDI. VSS. Assessment on going.
[2025-05-21] MEDS: WELLBUTRIN XL (24 hour extended release) 150 MG PO (20:30)
[2025-05-21] MEDS: LOW STRENGTH ASPIRIN 81 MG PO (20:30)
[2025-05-21] MEDS: TYLENOL 1000 MG PO (20:30)
[2025-05-21] MEDS: TYLENOL PO (21:42)
[2025-05-21] MEDS: NEURONTIN 300 MG PO (22:07)
[2025-05-22] MEDS: ANCEF 5 IV ×2 (00:06→08:08)
[2025-05-22] MEDS: DILAUDID 1 MG IV ×2 (06:11→13:35)
[2025-05-22 07:30] VITALS: BP 125/63
[2025-05-22] MEDS: FOLVITE 1 MG PO (08:08)
[2025-05-22] MEDS: LIPITOR 40 MG PO (08:08)
[2025-05-22] MEDS: TYLENOL 1000 MG PO ×3 (08:08→21:29)
[2025-05-22] MEDS: LOW STRENGTH ASPIRIN 81 MG PO ×2 (08:08→20:04)
[2025-05-22] MEDS: LEXAPRO 20 MG PO (08:08)
[2025-05-22] MEDS: WELLBUTRIN XL (24 hour extended release) 150 MG PO ×2 (08:08→20:04)
[2025-05-22 09:03] LABS: Hematocrit 33.3 % (37.0-47.0); Hemoglobin 11.5 g/dL (12.0-16.0); Mean Corp Hgb Conc. 34.5 g/dL (33.0-37.0); Mean Corpuscular Volume 96.2 fL (81.0-99.0); Platelet Count 214 10^3/uL (130-400); Red Cell Dist. Width 12.6 % (11.5-14.5)
--- NOTE | 2025-05-22 09:29 | W.PN.ORTHO ---
Documented by User: Alli Ríos PA-C 05/22/25 09:31
Today's Communication / Plan
-
65F POD [address] right [address]PP with Dr. Valdivia
- Partial weightbearing to right lower extremity with assist devices.
- PT/OT/discharge planning. Early ambulation
- Aspirin 81 mg twice daily for DVT prophylaxis was recommended otherwise per primary; SCDs while in bed
- Pain controlled on current regimen
- Diet per primary
Orthopedic surgery will continue to follow
Assessment
.
Distal Motor Intact: Yes
Dressing:
Clean, dry and intact.
Assessment:
Intraoperative fluoroscopic imaging shows hip reduction and status post 3 cannulated screw fixation without evidence of hardware or osseous complication
Plan
.
Surgery / Date: Right hip CRPP 05/21/2025 w/ Dr. Valdivia
DVT Prophylaxis: Aspirin
Activity:
Out of bed.
PT/OT
Subjective
.
.:
Patient resting comfortably.
Vital Signs and Labs
.
Vital Signs and Labs:
Lab Results
05/22/25 08:45
Temp Pulse Resp BP Pulse Ox
98.4 F 70 16 125/63 93
05/22/25 07:30 05/22/25 07:30 05/22/25 07:30 05/22/25 07:30 05/22/25 07:30
PT 13.4 Sec (11.4-14.6) 05/21/25 14:59
INR 0.99 05/21/25 14:59

Documented by User: Krissy Valdivia DO 05/23/25 10:28
Today's Communication / Plan
-
65F POD 1 right hip Cannulated screw fixation right femoral neck with Dr. Valdivia
- Partial weightbearing to right lower extremity with assist devices.
- PT/OT/discharge planning. Early ambulation
- Aspirin 81 mg twice daily for DVT prophylaxis was recommended otherwise per primary; SCDs while in bed
- Pain controlled on current regimen
- Diet per primary
Orthopedic surgery will continue to follow
[2025-05-22 09:33] LABS: Blood Urea Nitrogen 9 mg/dl (7-17); Calcium 8.9 mg/dl (8.4-10.2); Carbon Dioxide 26 mmol/L (22-30); Chloride 105 mmol/L (98-107); Estimated Creatinine Clearance 82 ml/min; Glucose 99 mg/dl (70-99); Potassium 4.4 mmol/L (3.5-5.1); Sodium 134 mmol/L (135-145); eGFR > 60.00
[2025-05-22 10:11] VITALS: BP 105/63; BP 123/61; PULSE 77; O2SAT 96
[2025-05-22 10:12] VITALS: BP 105/63; BP 123/61
--- NOTE | 2025-05-22 11:11 | W.PN.HOSP.TC ---
Today's Communication/Plan
-
see outlined plan below
Assessment / Plan
Assessment / Plan
Assessment:
Right Hip Fracture
- Xray: impacted subcapital fracture of the right hip. f/u CT confirmed this finding
- s/p right hip CRPP with Dr. Valdivia
- pain control
- ASA 81mg BID x 1 month for DVT ppx
- PT/OT - acute recommended. PMR evaluation
hx of Right cerebellar CVA 2023
- ASA daily to resume after BID DVT ppx dosing complete
Hyperlipidemia
- continue atorvastatin
Anxiety/Depression
- continue bupropion and escitalopram
Chronic Pain Syndrome
- continue gabapentin
Psoriatic Arthritis
- maintained on methotrexate and Simponi as outpatient
DVT ppx: SCDs + ASA + Ambulation
Code: Full
Anticipated Discharge: > 48 hours
Subjective/Interval History
-
Date of Service: May 22, 2025
denies any new complaints at present
Objective Data
-
Labs:
Laboratory Results
05/22/25
08:45
WBC 10.2
Hgb 11.5 L
Hct 33.3 L
Plt Count 214
Sodium 134 L
Potassium 4.4
Chloride 105
Carbon Dioxide 26
BUN 9
Creatinine 0.5 L
Glucose 99
Calcium 8.9
Vital Signs:
Vital Signs
Temp Pulse Resp BP Pulse Ox
98.4 F 70 16 125/63 93
05/22/25 07:30 05/22/25 07:30 05/22/25 07:30 05/22/25 07:30 05/22/25 07:30
I&O
05/21/25 05/22/25 05/23/25
06:59 06:59 06:59
Intake Total 610 / 610
Balance 610 / 610
Physical Exam
-
General: No Apparent Distress
HEENT: Normocephalic and Atraumatic
Respiratory: Negative Wheezes
Cardiac: Regular Rhythm and S1/S2
GI: Soft and Nontender
Genito-urinary: No Costovertebral Tender
Neuro: AO x 3
Hematologic / Lymphatic: No Lymphadenopathy
Psych: Calm
Data Reviewed
-
Total Time Spent with Patient (in minutes): 41
Labs: Labs Reviewed by me
--- NOTE | 2025-05-22 12:12 | CM ---
Addendum entered by Azul Estrada 05/23/25 12:25:
SW made referrals to Acute and SNFs
Original Note:
Initial assessment was completed with pt at bedside.
Pt is a 65yr old female admitted with hip fx post dog walk with fall.
At baseline, pt lives with her in a 3 level home with 10-11 best and a second floor bed and full bath.
Per pt, she does have a 1st floor 1/2 bath and says she would have to sleep on the couch if 1st floor set up was needed.
Per PT, pt would be appropriate for Acute Rehab. SW also reviewed SNF and provided dc resources.
Pt is hesitant about rehab and says that she is needed at home. SW talked about the advantages of placement.
Pt is indep at home, driving. Pt does not use equipment but does have access to most items if needed.
PCP; Kimmie Salinas
Pharm; [facility]
PLAN; TBD Acute vs SNF recommended
[2025-05-22 15:20] VITALS: BP 129/99
[2025-05-22] MEDS: ROXICODONE 5 MG PO (21:29)
[2025-05-22] MEDS: DESYREL 50 MG PO (21:29)
[2025-05-22] MEDS: NEURONTIN 300 MG PO (21:29)
[2025-05-22 23:08] VITALS: BP 122/59
[2025-05-23] MEDS: ROXICODONE 5 MG PO ×2 (03:17→15:56)
[2025-05-23 06:36] LABS: Hematocrit 33.2 % (37.0-47.0); Hemoglobin 10.8 g/dL (12.0-16.0); Mean Corp Hgb Conc. 32.5 g/dL (33.0-37.0); Mean Corpuscular Volume 99.4 fL (81.0-99.0); Platelet Count 171 10^3/uL (130-400); Red Cell Dist. Width 13.1 % (11.5-14.5)
[2025-05-23 07:00] LABS: Blood Urea Nitrogen 9 mg/dl (7-17); Calcium 8.7 mg/dl (8.4-10.2); Carbon Dioxide 27 mmol/L (22-30); Chloride 110 mmol/L (98-107); Estimated Creatinine Clearance 82 ml/min; Glucose 82 mg/dl (70-99); Potassium 3.9 mmol/L (3.5-5.1); Sodium 138 mmol/L (135-145); eGFR > 60.00
[2025-05-23 07:25] VITALS: BP 98/60
[2025-05-23] MEDS: DILAUDID 1 MG IV (08:16)
[2025-05-23] MEDS: FOLVITE 1 MG PO (08:20)
[2025-05-23] MEDS: WELLBUTRIN XL (24 hour extended release) 150 MG PO ×2 (08:20→19:52)
[2025-05-23] MEDS: MIRALAX 17 GRAMS PO (08:20)
[2025-05-23] MEDS: LIPITOR 40 MG PO (08:20)
[2025-05-23] MEDS: TYLENOL 1000 MG PO ×3 (08:20→21:11)
[2025-05-23] MEDS: LOW STRENGTH ASPIRIN 81 MG PO ×2 (08:20→19:52)
[2025-05-23] MEDS: LEXAPRO 20 MG PO (08:20)
--- NOTE | 2025-05-23 09:02 | W.PN.ORTHO ---
Today's Communication / Plan
-
65F POD [address] Dr[address] Valdivia
- Partial weightbearing to right lower extremity with assist devices.
- PT/OT/discharge planning. Early ambulation
- Aspirin 81 mg twice daily for DVT prophylaxis was recommended otherwise per primary; SCDs while in bed
- Pain Control regimen in place Per primary; can consider Lidoderm patches as requested by patient as well as NSAIDs if not medically contraindicated otherwise, oral hydromorphone, titration of gabapentin
- Diet per primary
Orthopedic surgery will Follow peripherally at this time; discharge information updated
Assessment
.
Dressing:
Clean, dry and intact.
Plan
.
Surgery / Date: Right hip CRPP 05/21/2025 w/ Dr. Valdivia
DVT Prophylaxis: Aspirin
Activity:
Out of bed.
PT/OT
Subjective
.
.:
Patient resting comfortably.Reports some difficulty with pain management
Vital Signs and Labs
.
Vital Signs and Labs:
Lab Results
05/23/25 06:17
05/23/25 06:17
Temp Pulse Resp BP Pulse Ox
98.3 F 80 20 98/60 99
05/23/25 07:25 05/23/25 07:25 05/23/25 07:25 05/23/25 07:25 05/23/25 07:25
PT 13.4 Sec (11.4-14.6) 05/21/25 14:59
INR 0.99 05/21/25 14:59
[2025-05-23 11:09] VITALS: BP 131/55
--- NOTE | 2025-05-23 12:50 | W.PN.HOSP.TC ---
Today's Communication/Plan
-
pain control
PT/OT
DC planning to [facility] vs SNF
Assessment / Plan
Assessment / Plan
Assessment:
Right Hip Fracture
- Xray: impacted subcapital fracture of the right hip. f/u CT confirmed this finding
- s/p right hip CRPP with Dr. Valdivia
- pain control; encourage oral pills as able
- ASA 81mg BID x 1 month for DVT ppx
- PT/OT - acute recommended. PMR evaluation. SNF as backup
hx of Right cerebellar CVA 2023
- ASA daily to resume after BID DVT ppx dosing complete
Hyperlipidemia
- continue atorvastatin
Anxiety/Depression
- continue bupropion and escitalopram
Chronic Pain Syndrome
- continue gabapentin
Psoriatic Arthritis
- maintained on methotrexate and Simponi as outpatient
DVT ppx: SCDs + ASA + Ambulation
Code: Full
Anticipated Discharge: > 48 hours
Subjective/Interval History
-
Date of Service: May 23, 2025
reports suboptimal pain control on 5mg oxycodone
now agreeable to SNF
Objective Data
-
Labs:
Laboratory Results
05/23/25
06:17
WBC 6.3
Hgb 10.8 L
Hct 33.2 L
Plt Count 171 D
Sodium 138
Potassium 3.9
Chloride 110 H
Carbon Dioxide 27
BUN 9
Creatinine 0.6
Glucose 82
Calcium 8.7
Vital Signs:
Vital Signs
Temp Pulse Resp BP Pulse Ox
98.3 F 80 20 98/60 99
05/23/25 07:25 05/23/25 07:25 05/23/25 07:25 05/23/25 07:25 10/12/25 07:25
I&O
05/22/25 05/23/25 05/24/25
06:59 06:59 06:59
Intake Total 610 / 610 480 / 480
Balance 610 / 610 480 / 480
Physical Exam
-
General: No Apparent Distress
HEENT: Normocephalic and Atraumatic
Respiratory: Negative Wheezes
Cardiac: Regular Rhythm and S1/S2
GI: Soft
Genito-urinary: No Costovertebral Tender
Neuro: AO x 3
Psych: Calm
Data Reviewed
-
Total Time Spent with Patient (in minutes): 41
Labs: Labs Reviewed by me
[2025-05-23 15:15] VITALS: BP 117/63
[2025-05-23] MEDS: ROXICODONE 10 MG PO (19:52)
[2025-05-23] MEDS: NEURONTIN 300 MG PO (21:11)
[2025-05-23] MEDS: DESYREL 50 MG PO (21:11)
[2025-05-23 23:14] VITALS: BP 115/51
[2025-05-24] MEDS: ROXICODONE 5 MG PO ×4 (03:04→22:06)
[2025-05-24 06:34] VITALS: BP 138/66
[2025-05-24 07:49] LABS: Hematocrit 33.2 % (37.0-47.0); Hemoglobin 10.7 g/dL (12.0-16.0); Mean Corp Hgb Conc. 32.2 g/dL (33.0-37.0); Mean Corpuscular Volume 100.0 fL (81.0-99.0); Platelet Count 185 10^3/uL (130-400); Red Cell Dist. Width 13.1 % (11.5-14.5)
[2025-05-24] MEDS: FOLVITE 1 MG PO (07:55)
[2025-05-24] MEDS: LIPITOR 40 MG PO (07:55)
[2025-05-24] MEDS: LEXAPRO 20 MG PO (07:55)
[2025-05-24] MEDS: TYLENOL 1000 MG PO ×3 (07:55→21:04)
[2025-05-24] MEDS: WELLBUTRIN XL (24 hour extended release) 150 MG PO ×2 (07:55→21:04)
[2025-05-24] MEDS: MIRALAX 17 GRAMS PO (07:55)
[2025-05-24] MEDS: LOW STRENGTH ASPIRIN 81 MG PO ×2 (07:55→21:03)
[2025-05-24 07:58] LABS: Blood Urea Nitrogen 7 mg/dl (7-17); Calcium 8.8 mg/dl (8.4-10.2); Carbon Dioxide 26 mmol/L (22-30); Chloride 109 mmol/L (98-107); Estimated Creatinine Clearance 82 ml/min; Glucose 77 mg/dl (70-99); Potassium 4.4 mmol/L (3.5-5.1); Sodium 139 mmol/L (135-145); eGFR > 60.00
[2025-05-24 09:56] VITALS: BP 115/55; PULSE 72; O2SAT 96
[2025-05-24 10:10] VITALS: BP 133/54; PULSE 69; O2SAT 98
--- NOTE | 2025-05-24 11:49 | CM ---
Addendum entered by Trista Suazo RN 05/24/25 14:56:
CM spoke with Tamika with [facility]. Per Tamika, signal tower director, [facility] can accept tomorrow. Covid screening required. Attending updated. Patient in agreement with [facility]. No precert required.
Original Note:
Reviewed the chart notes and spoke with the patient at the bedside. Discussed PT/OT recommendations of SNF. Referrals with [facility] sent. CM continues to be available to patient/family and is monitoring medical plan for needs at discharge.
Plan: Discharge to SNF/rehab once bed secured. No precert required.
[2025-05-24] MEDS: DULCOLAX 10 MG PO (12:37)
[2025-05-24] MEDS: LIDOCAINE 4% PATCH 1 PATCH TOPICAL (12:37)
--- NOTE | 2025-05-24 14:46 | W.PN.HOSP.TC ---
Today's Communication/Plan
-
Discharge planning for SNF rehab
Assessment / Plan
Assessment / Plan
Assessment:
Right Hip Fracture
- Xray: impacted subcapital fracture of the right hip. f/u CT confirmed this finding
- s/p right hip CRPP with Dr. Valdivia
- pain control; encourage oral pills as able
- ASA 81mg BID x 1 month for DVT ppx
- PT/OT - acute recommended. PMR evaluation. SNF as backup
Neck pain
- History of cervical DJD
- Patient uses lidocaine patch ordered
- NSAIDs being avoided as patient already on aspirin twice daily as part of DVT prophylaxis
hx of Right cerebellar CVA 2023
- ASA daily to resume after BID DVT ppx dosing complete
Hyperlipidemia
- continue atorvastatin
Anxiety/Depression
- continue bupropion and escitalopram
Chronic Pain Syndrome
- continue gabapentin
Psoriatic Arthritis
- maintained on methotrexate and Simponi as outpatient
DVT ppx: SCDs + ASA + Ambulation
Code: Full
Anticipated Discharge: Within 24 hours
Subjective/Interval History
-
Date of Service: May 24, 2025
Reported constipation
Having some neck pain
Objective Data
-
Labs:
Laboratory Results
05/24/25
06:31
WBC 5.2
Hgb 10.7 L
Hct 33.2 L
Plt Count 185
Sodium 139
Potassium 4.4
Chloride 109 H
Carbon Dioxide 26
BUN 7
Creatinine 0.6
Glucose 77
Calcium 8.8
Vital Signs:
Vital Signs
Temp Pulse Resp BP Pulse Ox
98 F 64 18 138/66 100
05/24/25 06:34 05/24/25 06:34 05/24/25 06:34 05/24/25 06:34 05/24/25 06:34
I&O
05/23/25 05/24/25 05/25/25
06:59 06:59 06:59
Intake Total 480 / 480 960 / 960
Balance 480 / 480 960 / 960
Review of Systems
-
Respiratory: Reports No Symptoms
Cardiac: Reports No Symptoms
Abdomen/GI: Reports Constipated; Denies Abdominal Pain, Nausea or Vomiting
Physical Exam
-
General: No Apparent Distress and Comfortable
HEENT: Negative Oxygen
GI: Soft and Nontender
Musculoskeletal: No Edema and Other (Right hip pain dressing )
Neuro: Awake, Alert, Oriented, No Motor Deficits and Nonfocal/Grossly Intact
Psych: Calm
[2025-05-24 15:00] VITALS: BP 142/68
[2025-05-24] MEDS: REMOVE LIDOCAINE PATCH 1 PATCH REMOVE (21:03)
[2025-05-24] MEDS: NEURONTIN 300 MG PO (21:03)
[2025-05-24] MEDS: DESYREL 50 MG PO (22:07)
[2025-05-24 23:13] VITALS: BP 126/56
[2025-05-25] MEDS: ROXICODONE 5 MG PO ×3 (06:29→20:09)
[2025-05-25 06:34] LABS: Hematocrit 34.3 % (37.0-47.0); Hemoglobin 11.4 g/dL (12.0-16.0); Mean Corp Hgb Conc. 33.2 g/dL (33.0-37.0); Mean Corpuscular Volume 97.2 fL (81.0-99.0); Platelet Count 201 10^3/uL (130-400); Red Cell Dist. Width 13.0 % (11.5-14.5)
[2025-05-25 06:56] LABS: Blood Urea Nitrogen 9 mg/dl (7-17); Calcium 9.2 mg/dl (8.4-10.2); Carbon Dioxide 27 mmol/L (22-30); Chloride 110 mmol/L (98-107); Estimated Creatinine Clearance 82 ml/min; Glucose 82 mg/dl (70-99); Potassium 4.4 mmol/L (3.5-5.1); Sodium 140 mmol/L (135-145); eGFR > 60.00
[2025-05-25 07:00] VITALS: BP 127/70
[2025-05-25] MEDS: TYLENOL 1000 MG PO ×3 (09:37→22:32)
[2025-05-25] MEDS: MIRALAX 17 GRAMS PO (09:38)
[2025-05-25] MEDS: LIDOCAINE 4% PATCH 1 PATCH TOPICAL (09:38)
[2025-05-25] MEDS: FOLVITE 1 MG PO (09:38)
[2025-05-25] MEDS: LOW STRENGTH ASPIRIN 81 MG PO ×2 (09:38→20:09)
[2025-05-25] MEDS: WELLBUTRIN XL (24 hour extended release) 150 MG PO ×2 (09:38→20:09)
[2025-05-25] MEDS: LEXAPRO 20 MG PO (09:38)
[2025-05-25] MEDS: LIPITOR 40 MG PO (09:38)
--- NOTE | 2025-05-25 11:11 | CM ---
Addendum entered by Trista Suazo RN 05/25/25 15:02:
Facility unable to accept today due to max of admissions received today. Patient, attending, and RN informed. Patient's spouse will transport tomorrow morning to the facility.
Original Note:
Reviewed the chart notes and spoke with the patient at the bedside. Patient to see if spouse can provide transportation to SNF.
Plan: Discharge to [facility]. No precert required.
Call report to: [phone]
Fax report to: [phone]
[2025-05-25 12:47] LABS: COVID-19 Antigen Negative (Negative)
[2025-05-25] MEDS: MOTRIN 400 MG PO (13:36)
--- NOTE | 2025-05-25 14:12 | PN.CDI ---
CDI
- -
CDI:
Physician Documentation Request
Admit Date: 05/21/25 15:33
Dear Doctor William,
ER Physician Documentation: 'accidental fall where her dog excellently tripped her causing her to fall onto a grassy surface'
05/24 Femoral XRay Report: 'There is a mildly impacted nondisplaced subcapital fracture of the right femoral neck as seen on the pelvic radiograph...The joint is maintained and shows advanced osteoarthritic changes.'
Please provide further specificity regarding the diagnosis of fracture:
Due to a combination of trauma and a pathological process but the trauma alone would not likely have been sufficient to cause the fracture
Traumatic
Pathological
Other
Use of terms such as suspected, likely, concern for, or probable (associated with a specific diagnosis that is being evaluated, monitored, or treated as if it exists) are acceptable and can be coded in the inpatient setting, when documented at the
time of discharge.
Thank you,
Naomie Oneil RN, BSN
CDI Specialist
Available via [facility] text
Please use your independent medical judgment in providing your response.
--- NOTE | 2025-05-25 14:19 | W.PN.HOSP.TC ---
Addendum entered and electronically signed by Chano Thomas MD 05/28/25 08:27:
Right hip fracture traumatic only
Original Note:
Today's Communication/Plan
-
Discharge was held as facility could not accept again today
Plan for discharge in the morning tomorrow
Assessment / Plan
Assessment / Plan
Right Hip Fracture
- Xray: impacted subcapital fracture of the right hip. f/u CT confirmed this finding
- s/p right hip CRPP with Dr. Valdivia
- pain control; encourage oral pills as able
- ASA 81mg BID x 1 month for DVT ppx
- Patient accepted by SNF rehab although bed unavailable today
Neck pain
- History of cervical DJD
- Patient uses lidocaine patch ordered
- NSAIDs being avoided as patient already on aspirin twice daily as part of DVT prophylaxis
hx of Right cerebellar CVA 2023
- ASA daily to resume after BID DVT ppx dosing complete
Hyperlipidemia
- continue atorvastatin
Anxiety/Depression
- continue bupropion and escitalopram
Chronic Pain Syndrome
- continue gabapentin
Psoriatic Arthritis
- maintained on methotrexate and Simponi as outpatient
DVT ppx: SCDs + ASA + Ambulation
Code: Full
Anticipated Discharge: Within 24 hours
Subjective/Interval History
-
Date of Service: May 25, 2025
No new complaints
continues to have some neck pain
Objective Data
-
Labs:
Laboratory Results
05/25/25
06:10
WBC 4.6 L
Hgb 11.4 L
Hct 34.3 L
Plt Count 201
Sodium 140
Potassium 4.4
Chloride 110 H
Carbon Dioxide 27
BUN 9
Creatinine 0.6
Glucose 82
Calcium 9.2
Vital Signs:
Vital Signs
Temp Pulse Resp BP Pulse Ox
98.0 F 65 16 127/70 100
05/25/25 07:00 05/25/25 07:00 05/25/25 07:00 05/25/25 07:00 05/25/25 07:00
I&O
05/24/25 05/25/25 05/26/25
06:59 06:59 06:59
Intake Total 960 / 960 600 / 600
Balance 960 / 960 600 / 600
Review of Systems
-
Respiratory: Reports No Symptoms
Cardiac: Reports No Symptoms
Abdomen/GI: Reports No Symptoms
Physical Exam
-
General: No Apparent Distress and Comfortable
HEENT: Negative Oxygen
GI: Soft and Nontender
Musculoskeletal: No Edema and Other (Right hip pain dressing )
Neuro: Awake, Alert, Oriented, No Motor Deficits and Nonfocal/Grossly Intact
Psych: Calm
[2025-05-25 15:00] VITALS: BP 124/63
[2025-05-25] MEDS: FLUZONE HIGH-DOSE 2025-26 0.5 ML IM (17:07)
[2025-05-25] MEDS: REMOVE LIDOCAINE PATCH 1 PATCH REMOVE (22:31)
[2025-05-25] MEDS: DESYREL 50 MG PO (22:32)
[2025-05-25] MEDS: NEURONTIN 300 MG PO (22:32)
[2025-05-25 23:22] VITALS: BP 130/62
[2025-05-26] MEDS: ROXICODONE 5 MG PO ×2 (05:55→10:29)
[2025-05-26 07:45] VITALS: BP 133/64
[2025-05-26] MEDS: WELLBUTRIN XL (24 hour extended release) 150 MG PO (08:47)
[2025-05-26] MEDS: LOW STRENGTH ASPIRIN 81 MG PO (08:47)
[2025-05-26] MEDS: TYLENOL 1000 MG PO (08:47)
[2025-05-26] MEDS: LIDOCAINE 4% PATCH 1 PATCH TOPICAL (08:47)
[2025-05-26] MEDS: MIRALAX 17 GRAMS PO (08:47)
[2025-05-26] MEDS: LIPITOR 40 MG PO (08:47)
[2025-05-26] MEDS: FOLVITE 1 MG PO (08:57)
[2025-05-26] MEDS: LEXAPRO 20 MG PO (08:57)
[2025-05-26 11:53] VITALS: BP 111/65
--- NOTE | 2025-05-26 13:32 | W.DCSUMMARY ---
Discharge Summary
Discharge Data
Date of Admission: 05/21/25
Date of Discharge: 05/26/25
-
Pending Results: No
Hospital Course
Discharging Physician : Dr Chano Thomas
Disposition : To snf rehab
Primary care physician : Dr Kimmie Salinas
Principal Discharge diagnosis :
Right hip fracture post mechanical fall
Chronic Discharge diagnosis :
Cervical degenerative joint disease
Right cerebellar stroke
Hyperlipidemia
Anxiety/depression
Chronic pain syndrome
History of psoriatic arthritis
Physical examination:
General: No Apparent Distress and Comfortable
HEENT: Negative Oxygen
GI: Soft and Nontender
Musculoskeletal: No Edema and Other (Right hip pain dressing )
Neuro: Awake, Alert, Oriented, No Motor Deficits and Nonfocal/Grossly Intact
Psych: Calm
Hospital Course :
Patient is a 64-year-old female with admission past medical history came to ER after having a mechanical fall and resultant right hip pain. Fall was reported to be trip and fall while walking the dog. In ER x-ray of the hip showing subtrochanteric
fracture. Orthopedic surgery was involved in care and a follow-up CT of pelvis was done confirming the finding. After discussion with patient patient was taken to the OR for surgical fixation underwent a gamma nailing. Postprocedure patient
course remained uncomplicated. Patient evaluated by physical therapy and was appropriate for rehab placement.
Important imaging findings :
None
Procedure findings :
None
Discharge Plan
-
Patient Disposition: Group Home/SNF
Discharge Diagnosis/Procedures: Right hip fracture
Condition: Fair
Diet: Regular
Activity: With assistance, With Walker and Other activity
Additional Activity: partial weight bearing x4 weeks RLE
Driving Restrictions: Not until seen by your Dr
Bathing Restrictions: OK to Shower
Referrals:
Krissy Valdivia I., DO [Active, Orthopedics]
Referral Note: Follow-up 2 weeks from date of surgery for wound check likely suture/staple removal. If discharged to a [facility]ci facility or acute rehab center and there at 2 weeks from date of surgery wound check and staple removal may be
done at that facility. Recommend then surgical follow-up 4 weeks from date of surgery with x-rays at that time
Kimmie Salinas MD [Family Provider, [facility]] - in one week
Prescriptions:
New
oxycodone 5 mg Tablet
5 mg PO Q4HPRN PRN (Reason: mod sev pain) Qty: 14 0RF
Continued
methotrexate sodium 2.5 mg tablet
25 mg PO WEEKLY
escitalopram oxalate 20 mg tablet
20 mg PO DAILY
bupropion HCl 150 mg tablet extended release 24 hr
150 mg PO BID
atorvastatin 40 mg tablet
40 mg PO DAILY
calcium carbonate 500 mg calcium (1,250 mg) Tablet
500 mg PO DAILY
folic acid 1 mg tablet
1 mg PO DAILY
gabapentin 100 mg capsule
300 mg PO HS
cholecalciferol (vitamin D3) [Vitamin D3] 50 mcg (2,000 unit) Capsule
50 mcg PO DAILY
trazodone 50 mg Tablet
50 mg PO HS
Changed
aspirin 81 mg Tablet
See Rx Instructions .ROUTE .COMPLEX Qty: 60 0RF
Rx Instructions:
Take 1 tablet twice daily for 30 Days THEN
Take 1 tablet daily
Discharge Orders:
Discharge Patient (As Directed); Ordered 05/26/25
Ordered By: Chano Thomas
Discharge Date and Time
Discharge Date/Time: 05/26/25 12:09
Print Language: ROMANIAN
== END 2025-05-26 12:09 | DRG 482 ==
LOC: 2 SOUTH 15:33
PROVIDERS: Physician Assistant Medical; ADMITTING PHYSICIAN Internal Medicine; ATTENDING PHYSICIAN Hospitalist; CONSULT PHYSICIAN Orthopaedic Surgery; CONSULT PHYSICIAN Physical Medicine & Rehabilitation; EMERGENCY PHYSICIAN Emergency Medicine; FAMILY PHYSICIAN Family Medicine
PROC: 0QH604Z Insertion of Internal Fixation Device into Right Upper Femur, Open Approach (ICD-10-PCS; 2025-05-21)
PROC: 3E02340 Introduction of Influenza Vaccine into Muscle, Percutaneous Approach (ICD-10-PCS; 2025-05-25)
DX: S72.24XA Nondisplaced subtrochanteric fracture of right femur, initial encounter for closed fracture (principal); Z86.73 Personal history of transient ischemic attack (TIA), and cerebral infarction without residual deficits; E78.5 Hyperlipidemia, unspecified; F41.9 Anxiety disorder, unspecified; F32.A Depression, unspecified; G89.4 Chronic pain syndrome; L40.50 Arthropathic psoriasis, unspecified; W01.0XXA Fall on same level from slipping, tripping and stumbling without subsequent striking against object, initial encounter; Y93.K1 Activity, walking an animal; F17.200 Nicotine dependence, unspecified, uncomplicated; Z79.82 Long term (current) use of aspirin; Z88.1 Allergy status to other antibiotic agents; Z79.899 Other long term (current) drug therapy; Z11.52 Encounter for screening for COVID-19; Z23 Encounter for immunization
CPT/HCPCS: 36415; 72170; 72192; 73502; 73552; 76000; 80048; 80053; 82306; 85025; 85027; 85610; 85730; 86140; 87811; 90662; 93005; 96374; 97116; 97163; 97167; 97530; 97535; 99285; C1713; C1769; G0008